=== PATIENT | female | born 2005 | race Caucasian/White ===

== ENCOUNTER 2024-02-03 19:10 | Emergency (ER) | payer SELFPAY ==
[2024-02-03 19:21] VITALS: BP 123/86; PULSE 85; RESP 16; TEMP 36.7; O2SAT 100
--- NOTE | 2024-02-03 19:22 | ED.FEMALEGU ---
HPI - Female Genitourinary General Chief complaint: Urogenital-Female Stated complaint: Uti Source: patient and RN notes reviewed Mode of arrival: ambulatory Limitations: no limitations History of Present Illness HPI Narrative: 18-year-old female presented for complaint of burning with urination over the past few days. She states she treated herself for possible yeast infection about 2 weeks ago using [id number] cream with improvement in symptoms. She currently denies vaginal itching or discharge. Denies hematuria, nausea, vomiting, abdominal pain, flank pain, constipation, diarrhea, fevers or chills. denies concern for or STD. Additionally, pt mentioned at the gym recently her heart rate read 208 bpm on her watch. Denies having any chest pain, dizziness, palpitations, nausea or syncope at that time. She was exercising. Pt did notify her pcp at that time and was advised to continue to monitor. Related Data Allergies Allergy/AdvReac Type Severity Reaction Status Date / Time No Known Allergies Allergy Verified 02/03/24 19:36 Review of Systems Review of Systems: CONSTITUTIONAL: Denies body aches, fever, chills, or sweats. CARDIOVASCULAR: Denies chest pain, palpitations, or edema. RESPIRATORY: Denies cough or dyspnea. GASTROINTESTINAL: Denies abdominal pain, nausea, vomiting, or diarrhea. GENITOURINARY: Reports dysuria, denies frequency, urgency, hematuria, flank pain SKIN: Denies rash, itching, or wounds. MUSCULOSKELETAL: Denies back pain or myalgia. PMFSH Comments At time of signature, I have reviewed and agree with nursing past medical, surgical, social and family history unless otherwise noted. Please see nursing chart for further information. There is no relevant family history pertinent to the presenting complaint Exam Narrative: GENERAL: Well-appearing ENT: Mucous membranes pink and moist. NECK: Normal AROM. Supple. CHEST: No respiratory distress. Clear to auscultation. HEART: Regular rate and rhythm. ABDOMEN: Soft, nontender, nondistended, normal active bowel sounds. No CVA tenderness SKIN: Warm, dry, no rash. NEURO: No focal deficits. Alert and oriented x3. Gait steady. PSYCH: Normal affect. Course Course Emergency Course: Patient is aware of diagnosis, understands and agrees to treatment plan. Anticipatory guidance given. Patient agrees to follow-up as directed and is aware of reasons to seek care at the emergency department. Portions of this record may have been created with voice recognition software Level of Care: Express Care Visit Vital Signs Vital signs: Reviewed MDM - Female Genitourinary MDM Narrative Medical decision making narrative: Discussed physical exam findings and urine dip. Advised supportive measures and signs/symptoms to go to the ER. Pt is appropriate for outpt treatment and f/u. Pt will f/u with pcp regarding elevated HR at the gym. Differential Diagnosis Differential diagnosis: Likely urinary tract infection, bacterial vaginosis, vaginitis, cystitis and other Lab Data Labs: Lab Results 02/03/24 Range/Units 19:27 POC Urine Color Yellow POC Urine Clarity Cloudy POC Urine pH 5.5 POC Ur Specif [place] 1.030 POC Urine Protein Negative (Negative) POC Ur Glucose (UA) Negative (Negative) POC Urine Ketones Negative (Negative) POC Urine Blood 2+ (Negative) POC Urine Nitrite Positive (Negative) POC Urine Bilirubin Negative (Negative) POC Urine Urobilinogen 0.2 POC U Leukocyte Esteras Negative (Negative) Discharge Plan Discharge Clinical Impression: Dysuria Patient Disposition: Home, Self-Care Condition: Stable Instructions: Antibiotic Form, Urinary Tract Infection in Women (ED) Additional Instructions: Take the antibiotic as prescribed The urine will be sent of for a culture to identify what type of bacteria is causing your infection. If the culture shows that the antibio
[2024-02-03 19:29] LABS: EDUAAPPEAR Cloudy; EDUABILI Negative (Negative); EDUABLOOD 2+ (Negative); EDUACOLOR1 Yellow; EDUAGLUCOSE Negative (Negative); EDUAKETONE Negative (Negative); EDUALEUKO Negative (Negative); EDUANITRATE Positive (Negative); EDUAPH 5.5; EDUAPROTEIN Negative (Negative); EDUAUROBILI 0.2
== END 2024-02-03 19:37 | disposition home or self-care (01) ==
PROVIDERS: Emergency Provider Nurse Practitioner Family
DX: R30.0 Dysuria (principal)
CPT/HCPCS: 81003; 87086; 87186; 99203; G0463

== ENCOUNTER 2024-02-09 15:01 | Emergency (ER) | payer OTHER, SELFPAY ==
--- NOTE | ~2024-02-09 | CT_ITS ---
EXAMINATION: CT abdomen pelvis wo con DATE: 02/09/2024 16:47 INDICATION: Flank pain TECHNIQUE: Computed tomography (CT) of the abdomen and pelvis was performed without intravenous contr ast. Automated exposure control and iterative reconstruction technique were employed. The dose-length product was 565.51 mGy-cm. COMPARISON: None FINDINGS: Lung bases are clear. Heart size is normal. No pericardial or pleural effusion. Liver, gallbladder, s pleen, pancreas and bilateral adrenal glands are normal. Kidneys and ureters are normal with no uroli thiasis, hydroureteronephrosis or perinephric/ureteral stranding. There are few phleboliths in the le ft hemipelvis. T-shaped IUD in expected position within the anteverted uterus. Bladder and bilateral adnexa are unremarkable. Bowels including the appendix are normal with no obstruction. No free intrap eritoneal gas or fluid. No pathologically enlarged abdominal or pelvic lymphadenopathy. Mild lumbar l evocurvature measuring 6 degrees on the device repair technician topogram. IMPRESSION: 1. No urolithiasis or acute intra-abdominal/pelvic process. 2. T-shaped IUD in expected position. Reviewed, dictated and finalized at location A.
[2024-02-09 15:04] VITALS: BP 121/88; PULSE 98; RESP 18; TEMP 36.4; O2SAT 100
[2024-02-09 15:48] LABS: BEDSIDEPREGUCG Negative (Negative)
[2024-02-09 15:53] LABS: Basophils Percent Auto 0.4 % (0.2-1.2); Eosinophils Absolute Auto 0.2 K/mm3 (0-0.3); Eosinophils Percent Auto 2.7 % (0-4.4); Hematocrit 41.7 % (37.0-47.0); Hemoglobin 13.8 g/dL (12.0-15.0); Immature Granulocyte Absolute 0.02 K/mm3 (0.00-0.031); Immature Granulocyte Percent A 0.3 % (0-0.5); Lymphocytes Absolute Auto 2.52 K/mm3 (0.9-3.2); Lymphocytes Percent Auto 37.4 % (18.3-44.2); Mean Corpuscular HGB Conc 33.1 g/dl (32-36); Mean Corpuscular Volume 84.6 fl (80-100); Mean Platelet Volume 11.1 fl (7.4-10.4); Monocytes Absolute Auto 0.7 K/mm3 (0.1-0.6); Monocytes Percent Auto 9.8 % (2.6-8.5); Neutrophils Absolute Auto 3.3 K/mm3 (1.3-6.7); Neutrophils Percent Auto 49.4 % (45.5-73.1); Platelet Count Result 223 k/mm3 (150-375); Red Blood Count 4.93 M/mm3 (4.2-5.4); Red Cell Distribution Width 12.3 % (11.5-14.5); White Blood Count 6.7 K/mm3 (4.5-10.0)
[2024-02-09 15:58] LABS: Add Urine Microscopic? YES; Appearance Urine Clear (Clear); Bacteria Urine None Seen /hpf; Bilirubin Urine Negative (Negative); Blood Urine 3+ (Negative); Color Urine Yellow (Yellow); Glucose Urine UA Negative (Negative); Ketones Urine Negative (Negative); Leukocyte Esterase Ur Negative LEU/UL (Negative); Nitrate Urine Negative (Negative); Non Pathogenic Casts 0-2; Protein Urine Negative (Negative); Specific Grav Ur 1.017 (1.001-1.035); Squamous Epithelial Cell Urine Occasional /hpf (Few); Urobilinogen Urine 0.2 mg/dL (<2.0); WBC Urine 0-5 /hpf (0-3); pH Urine 6.5 (5.0-9.0)
[2024-02-09 16:03] LABS: Alanine Aminotransferase 17 U/L (6-35); Albumin Level 4.5 g/dL (3.5-5.1); Alkaline Phosphatase 71 U/L (38-126); Anion Gap 7 mmol/L (4-12); Aspartate Amino Transferase 24 U/L (14-36); Bilirubin,Total 0.5 mg/dL (0.2-1.3); Blood Urea Nitrogen 16 mg/dL (7-17); Calcium 9.5 mg/dL (8.4-10.2); Carbon Dioxide 27 mmol/L (22-30); Chloride 104 mmol/L (98-107); Estimated CRCL calculation 102 ml/min; Estimated Glomerular Filt Rate > 60; Glucose 97 mg/dL (65-110); Lipase 63 U/L (23-300); Potassium 4.3 mmol/L (3.4-5.0); Sodium 138 mmol/L (137-145)
--- NOTE | 2024-02-09 17:09 | ED_ITS ---
HPI - Abdominal Pain General Chief Complaint: Abdominal Pain Stated Complaint: abd pain, back pain, possible displaced IUD Time Seen by Provider: 02/09/24 16:09 History of Present Illness HPI narrative: Patient is a 18-year-old female who presents ER with multiple issues. Last few weeks she developed some vaginal discharge that was treated as a fungal infection. Patient then began having spotting which was weird because she has an IUD. She then started having red flecks in her urine. She has been having some low back aching with this. She had been speaking with her OB but she is out of town so she came here for further evaluation. She is concerned her IUD could be out of place. No history kidney stones. No dysuria. No abdominal pain other than typical cramping that would accompany a period. Patient has no vaginal discharge at this time and is not concerned about STI. Related Data Allergies Allergy/AdvReac Type Severity Reaction Status Date / Time No Known Allergies Allergy Verified 02/09/24 15:07 Review of Systems Review of Systems: All systems reviewed & are unremarkable except as noted in HPI and below Constitutional: Constitutional: Reports no additional constitutional complaints Cardiovascular: Cardiovascular: Reports no additional cardiovascular complaints Respiratory: Respiratory: Reports no additional respiratory complaints Gastrointestinal: Gastrointestinal: Reports no additional gastrointestinal complaints Musculoskeletal: Musculoskeletal: Reports no additional musculoskeletal complaints PMFSH Past Medical History Medical History (Updated 02/09/24 @ 17:16 by Juni Buenrostro MD) Healthy female adult Surgical History Surgical History (Updated 02/09/24 @ 17:11 by Juni Buenrostro MD) No pertinent past surgical history Exam 2 Narrative: GENERAL: Well-appearing, well-nourished, and in no acute distress. HEAD: Normocephalic, atraumatic. ENT: Mucous membranes moist. CHEST: Clear to auscultation. No respiratory distress. HEART: Regular rate and rhythm. Normal peripheral pulses. ABDOMEN: Soft, nontender, nondistended. EXTREMITIES: Normal range of motion. No edema. SKIN: Warm, dry, no rash. NEURO: Alert and oriented x3. PSYCH: Normal mood and affect. Course Course Emergency Course: small amount of blood in urine. Labs unremarkable as was exam. CT with IUD in place and no obstructing renal calculus. Appropriate for discharge home. Vital Signs Vital signs: Vital Signs Temperature 97.6 F 02/09/24 15:04 Pulse Rate 98 02/09/24 15:04 Respiratory Rate 18 02/09/24 15:04 Blood Pressure 121/88 02/09/24 15:04 Pulse Oximetry 100 02/09/24 15:04 Oxygen Delivery Room Air 02/09/24 15:04 Temperature 97.6 F 02/09/24 15:04 Pulse Rate 98 02/09/24 15:04 Respiratory Rate 18 02/09/24 15:04 Blood Pressure 121/88 02/09/24 15:04 Pulse Oximetry 100 02/09/24 15:04 Oxygen Delivery Room Air 02/09/24 15:04 MDM - Abdominal Pain Lab Data 02/09/24 15:40 02/09/24 15:40 Labs: Lab Results 02/09/24 02/09/24 02/09/24 Range/Units 15:40 15:45 15:46 WBC 6.7 (4.5-10.0) K/mm3 RBC 4.93 (4.2-5.4) M/mm3 Hgb 13.8 (12.0-15.0) g/dL Hct 41.7 (37.0-47.0) % MCV 84.6 (80-100) fl MCH 28.0 (26-34) pg MCHC 33.1 (32-36) g/dl RDW 12.3 (11.5-14.5) % Plt Count 223 (150-375) k/mm3 MPV 11.1 H (7.4-10.4) fl Immature Gran % (Auto) 0.3 (0-0.5) % Neut % (Auto) 49.4 (45.5-73.1) % Lymph % (Auto) 37.4 (18.3-44.2) % [place] % (Auto) 9.8 H (2.6-8.5) % Eos % (Auto) 2.7 (0-4.4) % Baso % (Auto) 0.4 (0.2-1.2) % Lymph # (Auto) 2.52 (0.9-3.2) K/mm3 [place] # (Auto) 0.7 H (0.1-0.6) K/mm3 Eos # (Auto) 0.2 (0-0.3) K/mm3 Baso # (Auto) 0.0 (0.0-0.1) K/mm3 Abs Immat Gran (auto) 0.02 (0.00-0.031) K/mm3 Absolute Neuts (auto) 3.3 (1.3-6.7) K/mm3 Absolute Nucleated RBC 0.000 (0.0-0.012) K/mm3 Nucleated RBC % 0.0 (0.0-0.2) % Sodium 138 (137-145) mmol/L Potassium 4.3 (3.4-5.0) mmol/L Chloride 104 (98-107) mmol/L Carbon Dioxide 27 (22-30) mmol/L Anion Gap 7 (4-12) mmol/L BUN 16 (7-17) mg/dL Creatinine 0.80 (0.7-1.0) mg/dL Estim Creat Clear Calc 102 ml/min Estimated GFR > 60 (59 - ) Glucose 97 (65-110) mg/dL Calcium 9.5 (8.4-10.2) mg/dL Total Bilirubin 0.5 (0.2-1.3) mg/dL AST 24 (14-36) U/L ALT 17 (6-35) U/L Alkaline Phosphatase 71 (38-126) U/L Total Protein 8.0 (6.3-8.2) g/dL Albumin 4.5 (3.5-5.1) g/dL Lipase 63 (23-300) U/L Urine Color Yellow (Yellow) Urine Appearance Clear (Clear) Urine pH 6.5 (5.0-9.0) Ur Specific [place] 1.017 (1.001-1.035) Urine Protein Negative (Negative) mg/dL Urine Glucose (UA) Negative (Negative) mg/dL Urine Ketones Negative (Negative) mg/dL Ur Blood (Man) 3+ H (Negative) Urine Nitrate Negative (Negative) Urine Bilirubin Negative (Negative) Urine Urobilinogen 0.2 (<2.0) mg/dL Leukocyte Esterase Rfl Negative (Negative) JO-ANN/UL Urine RBC 11-20 H (0-2) /hpf Urine WBC 0-5 (0-3) /hpf Ur Squamous Epith Cells Occasional (Few) /hpf Urine Bacteria None seen /hpf Urine Casts 0-2 POC Urine HCG, Qual Negative (Negative) Imaging Data Radiologist's impression: ITS Impressions Abdomen/Pelvis CT 02/09/24 16:51 IMPRESSION: 1. No urolithiasis or acute intra-abdominal/pelvic process. 2. T-shaped IUD in expected position. Discharge Plan Discharge Clinical Impression: Menstrual cramp Patient Disposition: Home, Self-Care Condition: Stable Instructions: Abnormal (Dysfunctional) Uterine Bleeding (ED) Additional Instructions: Follow-up with the primary care doctor for further treatment evaluation. There is no evidence of infection or obstructing stone on her CT scan. Your IUD is in place. Prescriptions: No Action nitrofurantoin monohyd/m-cryst [Macrobid] 100 mg capsule 100 mg PO Q12H 5 Days Qty: 10 0RF Rx Instructions: must administer with a meal/food Follow-up/Referrals: UNKNOWN,DOCTOR [Primary Care Provider] - 1 Week
[2024-02-09] MEDS: KETOROLAC 30 MG/ML VIAL (*BKC) IV PUSH (17:14)
== END 2024-02-09 17:37 | disposition home or self-care (01) ==
PROVIDERS: Emergency Medicine; Emergency Provider Emergency Medicine
DX: N94.6 Dysmenorrhea, unspecified (principal); Z97.5 Presence of (intrauterine) contraceptive device
CPT/HCPCS: 36415; 74176; 80053; 81001; 81025; 83690; 85025; 96374; 99284; J1885

== ENCOUNTER 2024-05-23 18:23 | Emergency (ER) | payer OTHER, SELFPAY ==
[2024-05-23 18:32] VITALS: BP 122/82; PULSE 91; RESP 16; TEMP 36.6; O2SAT 100
--- NOTE | 2024-05-23 18:37 | ED_ITS ---
HPI - URI/Sore Throat General Chief Complaint: Upper Respiratory Infection Stated Complaint: STUFFY NOSE/SORE THROAT/EARACHE Time Seen by Provider: 05/23/24 18:35 Source: patient Mode of arrival: ambulatory Limitations: no limitations History of Present Illness HPI Narrative: Kevin is a 19-year-old female patient presenting to clinic today with complaints of runny nose, sore throat, and earache. Symptoms started 3-4 days ago. No known fevers. 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 Is concerned about strep or influenza. MD elicited complaint: cough, sore throat, rhinorrhea and nasal congestion Related Data Home Medications ?Medication ?Instructions ?Recorded ?Confirmed ?Last Taken ?Type No Home Medications 05/23/24 05/23/24 Unknown History Allergies Allergy/AdvReac Type Severity Reaction Status Date / Time No Known Allergies Allergy Verified 05/23/24 18:29 Review of Systems Review of Systems: Pertinent positives per HPI. Patient denies any fever, chills, rash, visual changes, dizziness, shortness of breath, chest pain, palpitations, nausea, vomiting, diarrhea, constipation, abdominal pain, or any urinary issues. [facility] Past Medical History Medical History Healthy female adult Surgical History Surgical History No pertinent past surgical history Comments At the time of my signature, I reviewed and agree with the nursing past medical, surgical, social, and family history. There is no relevant family history pertinent to the patient complaint. Exam Narrative: General: Well-developed, well nourished, in no apparent distress Head: Normocephalic, atraumatic Eyes: Pupils equally round and reactive to light bilaterally, EOM intact, sclera and conjunctive clear, no discharge, lids normal Ears: TMs intact and congested, ear canals clear, no drainage, grossly hearing normal. Nose: Nares patent, clear nasal discharge, no inflammation, no sinus tenderness. Mouth: Oral pharynx red without lesions or masses, good dentition, MMM. Postnasal drip Neck: Supple, trachea midline, no enlargement of anterior or posterior cervical nodes, no thyroid masses or goiter palpable. Cardio: Regular rate and rhythm, s1 and s2 normal, no murmur appreciated. Resp: Clear to auscultation bilaterally, no rhonchi, rales, wheezing or rubs Course Course Emergency Course: Portions of this record may have been created with voice recognition software. Level of Care: Express Care Visit Vital Signs Vital signs: Vital Signs Temperature 36.6 C 05/23/24 18:32 Pulse Rate 91 05/23/24 18:32 Respiratory Rate 16 05/23/24 18:32 Blood Pressure 122/82 05/23/24 18:32 Pulse Oximetry 100 05/23/24 18:32 Temperature 36.6 C 05/23/24 18:32 Pulse Rate 91 05/23/24 18:32 Respiratory Rate 16 05/23/24 18:32 Blood Pressure 122/82 05/23/24 18:32 Pulse Oximetry 100 05/23/24 18:32 Vital signs reviewed MDM - URI/Sore Throat MDM Narrative Medical decision making narrative: At the time of visit patient is resting comfortably on the exam table. Patient appears to be nontoxic. Labs: Strep and influenza testing was performed. Strep was negative we will send strep for culture. Plan: I suspect patient has URI/pharyngitis/viral syndrome. Supportive measures were discussed with the patient and they voiced understanding discharge instructions and agrees to treatment plan. Return precautions reviewed Differential Diagnosis Differential diagnosis: Likely upper respiratory infection, otitis media, sinusitis, viral infection, bronchitis, influenza, pharyngitis and other (COVID) Lab Data Labs: Lab Results 05/23/24 Range/Units 18:53 POC Influenza A Ag Negative (Negative) POC Influenza B Ag Negative (Negative) POC Grp A Strep Screen Negative (Negative) Discharge Plan Discharge Clinical Impression: Upper respiratory infection Qualifiers: URI type: unspecified URI Qualified Code(s): J06.9 - Acute upper respiratory infection, unspecified Pharyngitis Qualifiers: Pharyngitis/tonsillitis etiology: unspecified etiology Qualified Code(s): J02.9 - Acute pharyngitis, unspecified Patient Disposition: Home, Self-Care Condition: Stable Instructions: Antibiotic Form, Pharyngitis (ED), Viral Syndrome (ED), Cold Symptoms (ED) Additional Instructions: Influenza and strep test were negative in the clinic today. We will send strep for culture if this comes back positive we will contact him place you on antibiotics at that time. Increase fluids and stay well hydrated Tylenol/motrin for pain/fever Flonase and OTC antihistamines as directed Vicks vapor rub to open sinuses Sinus rinses for congestion Cepacol spray, cough drops, throat lozenges, warm tea with honey/lemon, gargle salt water to soothe throat BRAT diet for diarrhea Clear liquids x 24 hours then advance as tolerated for nausea/vomiting Go to the ED if you develop a worsening in your condition- high fever not controlled by Tylenol or Motrin, dehydration, weakness, lethargy, shortness of breath, or chest pain. Follow up with your PCP in 3-5 days if symptoms persist. Patient Language: Palestinian Prescriptions: No Action No Home Medications Follow-up/Referrals: Nanda,Kristen [Other] Stand Alone Forms: Work/School Release IP Time of Disposition: 18:55 Quality NIHSS Nursing Documentation ED NIHSS nursing documentation: reviewed/agree
[2024-05-23 18:55] LABS: EDINFLUASCREEN Negative (Negative); EDINFLUBSCREEN Negative (Negative); EDSTREPNEGPOS1 Negative (Negative)
== END 2024-05-23 18:58 | disposition home or self-care (01) ==
PROVIDERS: Emergency Provider Nurse Practitioner Family
DX: J06.9 Acute upper respiratory infection, unspecified (principal); J02.9 Acute pharyngitis, unspecified
CPT/HCPCS: 87081; 87804; 87880; 99213; G0463

== ENCOUNTER 2024-05-25 13:49 | Emergency (ER) | payer OTHER, SELFPAY ==
--- NOTE | ~2024-05-25 | XR_ITS ---
EXAMINATION: XR chest 2V DATE: 05/25/2024 14:32 INDICATION: Cough. Chest congestion. TECHNIQUE: Frontal and lateral views of the chest were obtained. COMPARISON: CT abdomen and pelvis 02/09/2024 FINDINGS: There is no pneumonia, pleural effusion, or pneumothorax. The heart size is normal. IMPRESSION: 1. No acute cardiopulmonary disease. Reviewed, dictated and finalized at location A. [facility]
[2024-05-25 14:01] VITALS: BP 117/83; PULSE 78; RESP 16; TEMP 36.4; O2SAT 100
--- NOTE | 2024-05-25 14:11 | ED_ITS ---
HPI - URI/Sore Throat General Chief Complaint: Upper Respiratory Infection Stated Complaint: Chest Congestion Time Seen by Provider: 05/25/24 14:11 Source: patient Mode of arrival: ambulatory Limitations: no limitations History of Present Illness HPI Narrative: 19-year-old female presents with complaint of nasal congestion, postnasal drainage, scratchy irritated throat, cough for 6 days. Afebrile. Taking over-t he-counter medications to treat symptoms. Reports pneumonia exposure at work. Called her primary care physician regarding continued symptoms and he recommended a chest x-ray. Patient asking for COVID and influenza test again. All systems reviewed and negative except as noted above. Related Data Allergies Allergy/AdvReac Type Severity Reaction Status Date / Time No Known Allergies Allergy Verified 05/25/24 14:04 Review of Systems Review of Systems: CONSTITUTIONAL: Denies fever, chills, or sweats. Reports fatigue. EYES: Denies visual changes, redness, or discharge. ENT: Reports rhinorrhea, congestion, sore throat. Denies otalgia. CARDIOVASCULAR: Denies chest pain, palpitations, or edema. RESPIRATORY: Reports cough. Denies dyspnea. GASTROINTESTINAL: Denies abdominal pain, nausea, vomiting, or diarrhea. GENITOURINARY: Denies dysuria or hematuria. SKIN: Denies rash or itching. MUSCULOSKELETAL: Denies back pain, joint pain, or myalgia. NEUROLOGIC: Denies headache, numbness, or weakness. PSYCHIATRIC: Denies anxiety or depression. All other systems reviewed are negative, except as documented in HPI. PMFSH Past Medical History Medical History Healthy female adult Surgical History Surgical History No pertinent past surgical history Comments At time of signature, agree with nursing past medical, surgical, social and family history. There is no relevant family history pertinent to the presenting complaint. Exam Narrative: GENERAL: This is a well-nourished, well-developed patient, ill-appearing but in no acute distress HEAD: normocephalic, atraumatic. EYES: PERRL. Sclera clear/white. Vision is grossly intact. EARS: External ears normal, auditory canals clear and without drainage, TMs normal without perforation. Hearing grossly intact. NOSE: External nose normal with clear nasal drainage, mild erythema to bilateral nares THROAT: Mucous membranes moist, mild erythema with clear postnasal drainage NECK: Neck supple, non-tender without lymphadenopathy, masses or thyromegaly. CARDIOVASCULAR: Regular rate and rhythm without murmurs, gallops, or rubs. RESPIRATORY: Clear to auscultation. Breath sounds equal bilaterally. No wheezes, rales, or rhonchi. SKIN: warm, Dry, intact with no suspicious lesions or rash, good texture and turgor. NEURO: awake, alert, and oriented to person, place and time. There were no obvious focal neurologic abnormalities. EXTREMITIES: No joint tenderness, effusion, or edema noted. Course Course Level of Care: Express Care Visit Vital Signs Vital signs: Vital Signs Temperature 36.4 C 05/25/24 14:01 Pulse Rate 78 05/25/24 14:01 Respiratory Rate 16 05/25/24 14:01 Blood Pressure 117/83 05/25/24 14:01 Pulse Oximetry 100 05/25/24 14:01 Temperature 36.4 C 05/25/24 14:01 Pulse Rate 78 05/25/24 14:01 Respiratory Rate 16 05/25/24 14:01 Blood Pressure 117/83 05/25/24 14:01 Pulse Oximetry 100 05/25/24 14:01 Reviewed MDM - URI/Sore Throat MDM Narrative Medical decision making narrative: Negative COVID, influenza test. Chest x-ray negative for pneumonia. Recommend continuing [id number] medications to treat viral symptoms. Patient is alert, nontoxic. Patient is aware of diagnosis, understands and agrees to treatment plan. Anticipatory guidance given. Patient agrees to follow-up as directed and is aware of reasons to seek care at the emergency department. Portions of this record may have been created with voice recognition software Differential Diagnosis Differential diagnosis: Likely upper respiratory infection, sinusitis, viral infection, influenza and other (COVID-19, pneumonia) Lab Data Labs: Lab Results 05/25/24 Range/Units 14:28 POC Influenza A Ag Negative (Negative) POC Influenza B Ag Negative (Negative) POC SARS CoV-2 Ag Negative (Negative) Imaging Data My impression: Agree with radiologist Radiologist's impression: EXAMINATION: XR chest 2V DATE: 05/25/2024 14:32 INDICATION: Cough. Chest congestion. TECHNIQUE: Frontal and lateral views of the chest were obtained. COMPARISON: CT abdomen and pelvis 02/09/2024 FINDINGS: There is no pneumonia, pleural effusion, or pneumothorax. The heart size is normal. IMPRESSION: 1. No acute cardiopulmonary disease. Discharge Plan Discharge Clinical Impression: Viral upper respiratory tract infection with cough Patient Disposition: Home, Self-Care Condition: Stable Instructions: Upper Respiratory Infection (ED) Additional Instructions: Your COVID and influenza test were negative today. Your chest x-ray was normal. Your symptoms are viral and may last 10-14 days. Continue taking [id number] medication to treat her symptoms such as DayQuil NyQuil cold and flu. Drink at least 64 oz of water a day. Place cool mist humidifier in bedroom where you sleep. Follow-up with your primary care physician if symptoms are not improving. Patient Language: Martiniquais Prescriptions: New methylprednisolone [Medrol (Eh)] 4 mg tablets,dose pack See Rx Instructions PO .COMPLEX Qty: 21 0RF Rx Instructions: orally per package directions Follow-up/Referrals: UNKNOWN,DOCTOR [Primary Care Provider] - Time of Disposition: 14:44
[2024-05-25 14:30] LABS: EDCOVIDSCREEN Negative (Negative); EDINFLUASCREEN Negative (Negative); EDINFLUBSCREEN Negative (Negative)
== END 2024-05-25 14:53 | disposition home or self-care (01) ==
PROVIDERS: Emergency Provider Nurse Practitioner Family
DX: J06.9 Acute upper respiratory infection, unspecified (principal); R05.9 Cough, unspecified; Z20.822 Contact with and (suspected) exposure to COVID-19
CPT/HCPCS: 71046; 87426; 87804; 99213; G0463

== ENCOUNTER 2025-03-13 21:02 | Emergency (ER) | payer OTHER, SELFPAY ==
--- NOTE | ~2025-03-13 | XR_ITS ---
EXAMINATION: XR chest 2V DATE: 03/13/2025 21:37 INDICATION: Syncope. TECHNIQUE: Frontal and lateral views of the chest were obtained. COMPARISON: Chest x-ray dated 05/25/2024 FINDINGS: Heart size is normal. Lungs are clear of acute processes. IMPRESSION: 1. No acute findings. Reviewed, dictated and finalized at location T. TRONIC PUBLISHING SPECIALIST IMPRESSION: 1. No acute findings.
--- NOTE | ~2025-03-13 | CT_ITS ---
CT HEAD NON-CONTRAST Clinical History: dizziness, brain fog, headache Comparison: None Technique: Unenhanced axial images skull base to vertex Coronal, sagittal reformats CT images acquired with automatic exposure control for dose reduction DLP: 605 mGy-cm Findings: Sulci, ventricles: Unremarkable. No intracerebral hemorrhage. No evidence acute territorial infarct. No mass effect, midline shift. Bony calvarium intact. Visualized paranasal sinuses: Clear. Mastoid air cells: Clear. IMPRESSION: 1. No acute intracranial findings. Reviewed, dictated and finalized at location R. WINDER
[2025-03-13 21:05] VITALS: BP 144/90; PULSE 105; RESP 15; TEMP 36.6; O2SAT 100
--- NOTE | 2025-03-13 21:09 | ECG_ITS ---
Test Date: 2025-03-13 21:17:48 Measurements Intervals [place] Rate: 115 P: 24 MD: 149 QRS: 23 QRSD: 88 T: 13 QT: 320 QTc: 443 Interpretive Statements SINUS TACHYCARDIA OTHERWISE NORMAL ELECTROCARDIOGRAM No previous ECG available for comparison Electronically Signed On 03-14-2025 07:33:40 [employer]GER [employer] by Mert Campbell M.D.
[2025-03-13 21:53] LABS: Hematocrit 42.7 % (37.0-47.0); Hemoglobin 14.3 g/dL (12.0-15.0); Immature Granulocyte Percent A 0.2 % (0-0.5); Lymphocytes Absolute Auto 3.03 K/mm3 (0.9-3.2); Mean Corpuscular HGB Conc 33.5 g/dl (32-36); Mean Corpuscular Hemoglobin 27.9 pg (26-34); Mean Corpuscular Volume 83.2 fl (80-100); Nucleated Red Blood Cells Absolute Auto 0.000 K/mm3 (0.0-0.012); Nucleated Red Blood Cells Perc 0.0 % (0.0-0.2); Platelet Count Result 236 k/mm3 (150-375); Red Blood Count 5.13 M/mm3 (4.2-5.4); White Blood Count 8.6 K/mm3 (4.5-10.0)
[2025-03-13 21:54] LABS: BEDSIDEPREGUCG Negative (Negative)
[2025-03-13 22:14] VITALS: BP 124/86; BP 126/83; PULSE 85; PULSE 95
[2025-03-13 22:15] VITALS: BP 137/74; PULSE 95
[2025-03-13 22:15] LABS: Alanine Aminotransferase 34 U/L (6-35); Albumin Level 4.8 g/dL (3.5-5.1); Alkaline Phosphatase 70 U/L (38-126); Anion Gap 9 mmol/L (4-12); Aspartate Amino Transferase 36 U/L (14-36); Bilirubin,Total 0.4 mg/dL (0.2-1.3); Blood Urea Nitrogen 12 mg/dL (7-17); Calcium 9.8 mg/dL (8.4-10.2); Carbon Dioxide 28 mmol/L (22-30); Chloride 103 mmol/L (98-107); Estimated CRCL calculation 111 ml/min; Estimated Glomerular Filt Rate > 60; Glucose 103 mg/dL (65-110); Potassium 3.6 mmol/L (3.4-5.0); Sodium 140 mmol/L (137-145); Total Protein 8.0 g/dL (6.3-8.2)
[2025-03-13 22:38] VITALS: BP 110/75; PULSE 86; RESP 16; O2SAT 97
--- NOTE | 2025-03-13 23:16 | ED_ITS ---
HPI - Dizziness General Chief Complaint: Syncope Stated Complaint: brain fog, near syncope Time Seen by Provider: 03/13/25 23:01 History of Present Illness HPI Narrative: Patient is a 19-year-old female who presents to the ER with brain fog, dizziness, headache, heart palpitations, decreased p.o. intake, sore throat, and fatigue. She reports this evening she was going to get a glucometer when she had a presyncopal episode. Patient reports her muscles tensed up. She reports her mood mother has a history of abnormal thyroid levels. Patient denies any medical history relevant to this ER visit. She denies any chest pain, shortness of breath, acute back pain, or abdominal pain. Related Data Allergies Allergy/AdvReac Type Severity Reaction Status Date / Time No Known Allergies Allergy Verified 03/13/25 21:03 Review of Systems 2 Review of Systems: All systems reviewed & are unremarkable except as noted in HPI and below PMFSH Past Medical History Medical History Healthy female adult Surgical History Surgical History No pertinent past surgical history Exam 2 Narrative: GENERAL: Well appearing, well-nourished, non-toxic, in no acute distress. HEAD: Normocephalic, atraumatic. NECK: Supple. No adenopathy, no masses. RESPIRATORY: Airway patent, respirations nonlabored. Clear to auscultation bilaterally, no rales, rhonchi, wheezing. CARDIOVASCULAR: Regular rate and rhythm without murmurs, rubs, or gallops. Peripheral pulses 2+ and equal bilaterally. ABDOMINAL: Soft, nontender, nondistended, no hepatosplenomegaly. Normoactive BS. MUSCULOSKELETAL: Moves all extremities. Strength/ROM intact without gross deformities. SKIN: Warm, dry, normal color. No rashes. NEURO: A&O X3. Speech clear. Cranial nerves II-XII intact. No ataxic movements. PSYCHIATRIC: Appropriate mood and affect. Normal interaction. Course Vital Signs Vital signs: Vital Signs Temperature 36.6 C 03/13/25 21:05 Pulse Rate 105 H 03/13/25 21:05 Respiratory Rate 15 03/13/25 21:05 Blood Pressure 144/90 H 03/13/25 21:05 Pulse Oximetry 100 03/13/25 21:05 Oxygen Delivery Room Air 03/13/25 21:05 Temperature 36.6 C 03/13/25 21:05 Pulse Rate 82 03/14/25 01:52 Respiratory Rate 17 03/14/25 01:52 Blood Pressure 113/71 03/14/25 01:52 Pulse Oximetry 99 03/14/25 01:52 Oxygen Delivery Room Air 03/13/25 21:05 MDM - Dizziness MDM Narrative Medical decision making narrative: Patient is a 19-year-old female who presents to the ER with brain fog, dizziness, headache, heart palpitations, decreased p.o. intake, sore throat, and fatigue. She reports this evening she was going to get a glucometer when she had a presyncopal episode. Patient reports her muscles tensed up. She reports her mood mother has a history of abnormal thyroid levels. Patient denies any medical history relevant to this ER visit. She denies any chest pain, shortness of breath, acute back pain, or abdominal pain. Labs Ordered: CBC, CMP, TSH, mono test, magnesium Imaging Ordered: Chest x-ray, CT brain Medications Ordered: None necessary Patient has chosen to refuse further care. She would like to leave before her brain CT scan results are back. Risks of an incomplete evaluation and treatment were discussed with the patient, including potential for or permanent disability. Patient seems to understand these risks, but still desires to refuse further care. Patient recommended to follow up with PCP in the next possible interval. Specifically, patient was told they can return to the ED at any time to resume care. Differential Diagnosis Differential diagnosis: Likely benign paroxysmal positional vertigo, orthostatic hypotension and other (Dehydration, urinary tract infection) Lab Data Attestation: I reviewed the patient's lab results. 03/13/25 21:30 03/13/25 21:30 Labs: Lab Results 03/13/25 03/13/25 03/13/25 Range/Units 21:09 21:22 21:29 WBC (4.5-10.0) K/mm3 RBC (4.2-5.4) M/mm3 Hgb (12.0-15.0) g/dL Hct (37.0-47.0) % MCV (80-100) fl MCH (26-34) pg MCHC (32-36) g/dl RDW (11.5-14.5) % Plt Count (150-375) k/mm3 MPV (7.4-10.4) fl Immature Gran % (Auto) (0-0.5) % Neut % (Auto) (45.5-73.1) % Lymph % (Auto) (18.3-44.2) % [place] % (Auto) (2.6-8.5) % Eos % (Auto) (0-4.4) % Baso % (Auto) (0.2-1.2) % Lymph # (Auto) (0.9-3.2) K/mm3 [place] # (Auto) (0.1-0.6) K/mm3 Eos # (Auto) (0-0.3) K/mm3 Baso # (Auto) (0.0-0.1) K/mm3 Abs Immat Gran (auto) (0.00-0.031) K/mm3 Absolute Neuts (auto) (1.3-6.7) K/mm3 Absolute Nucleated RBC (0.0-0.012) K/mm3 Nucleated RBC % (0.0-0.2) % Sodium (137-145) mmol/L Potassium (3.4-5.0) mmol/L Chloride (98-107) mmol/L Carbon Dioxide (22-30) mmol/L Anion Gap (4-12) mmol/L BUN (7-17) mg/dL Creatinine (0.7-1.0) mg/dL Estim Creat Clear Calc ml/min Estimated GFR (59 - ) Glucose (65-110) mg/dL Calcium (8.4-10.2) mg/dL Magnesium 2.0 (1.6-2.3) mg/dL Total Bilirubin (0.2-1.3) mg/dL AST (14-36) U/L ALT (6-35) U/L Alkaline Phosphatase (38-126) U/L Total Protein (6.3-8.2) g/dL Albumin (3.5-5.1) g/dL TSH (Reflex) 2.670 (0.465-4.68) uIU/mL Urine Color (Yellow) Urine Appearance (Clear) Urine pH (5.0-9.0) Ur Specific [place] (1.001-1.035) Urine Protein (Negative) mg/dL Urine Glucose (UA) (Negative) mg/dL Urine Ketones (Negative) mg/dL Ur Blood (Man) (Negative) Urine Nitrate (Negative) Urine Bilirubin (Negative) Urine Urobilinogen (<2.0) mg/dL Leukocyte Esterase Rfl (Negative) JO-ANN/UL Urine RBC (0-2) /hpf Urine WBC (0-3) /hpf Ur Squamous Epith Cells (Few) /hpf Urine Bacteria /hpf Urine Casts POC Urine HCG, Qual Negative (Negative) Monoscreen Negative (Negative) 03/13/25 03/14/25 Range/Units 21:30 01:48 WBC 8.6 (4.5-10.0) K/mm3 RBC 5.13 (4.2-5.4) M/mm3 Hgb 14.3 (12.0-15.0) g/dL Hct 42.7 (37.0-47.0) % MCV 83.2 (80-100) fl MCH 27.9 (26-34) pg MCHC 33.5 (32-36) g/dl RDW 12.1 (11.5-14.5) % Plt Count 236 (150-375) k/mm3 MPV 10.6 H (7.4-10.4) fl Immature Gran % (Auto) 0.2 (0-0.5) % Neut % (Auto) 50.8 (45.5-73.1) % Lymph % (Auto) 35.4 (18.3-44.2) % [place] % (Auto) 10.3 H (2.6-8.5) % Eos % (Auto) 2.8 (0-4.4) % Baso % (Auto) 0.5 (0.2-1.2) % Lymph # (Auto) 3.03 (0.9-3.2) K/mm3 [place] # (Auto) 0.9 H (0.1-0.6) K/mm3 Eos # (Auto) 0.2 (0-0.3) K/mm3 Baso # (Auto) 0.0 (0.0-0.1) K/mm3 Abs Immat Gran (auto) 0.02 (0.00-0.031) K/mm3 Absolute Neuts (auto) 4.3 (1.3-6.7) K/mm3 Absolute Nucleated RBC 0.000 (0.0-0.012) K/mm3 Nucleated RBC % 0.0 (0.0-0.2) % Sodium 140 (137-145) mmol/L Potassium 3.6 (3.4-5.0) mmol/L Chloride 103 (98-107) mmol/L Carbon Dioxide 28 (22-30) mmol/L Anion Gap 9 (4-12) mmol/L BUN 12 (7-17) mg/dL Creatinine 0.74 (0.7-1.0) mg/dL Estim Creat Clear Calc 111 ml/min Estimated GFR > 60 (59 - ) Glucose 103 (65-110) mg/dL Calcium 9.8 (8.4-10.2) mg/dL Magnesium (1.6-2.3) mg/dL Total Bilirubin 0.4 (0.2-1.3) mg/dL AST 36 (14-36) U/L ALT 34 (6-35) U/L Alkaline Phosphatase 70 (38-126) U/L Total Protein 8.0 (6.3-8.2) g/dL Albumin 4.8 (3.5-5.1) g/dL TSH (Reflex) (0.465-4.68) uIU/mL Urine Color Yellow (Yellow) Urine Appearance Clear (Clear) Urine pH 6.5 (5.0-9.0) Ur Specific [place] 1.010 (1.001-1.035) Urine Protein Negative (Negative) mg/dL Urine Glucose (UA) Negative (Negative) mg/dL Urine Ketones Negative (Negative) mg/dL Ur Blood (Man) Negative (Negative) Urine Nitrate Negative (Negative) Urine Bilirubin Negative (Negative) Urine Urobilinogen 0.2 (<2.0) mg/dL Leukocyte Esterase Rfl Trace H (Negative) JO-ANN/UL Urine RBC 0-2 (0-2) /hpf Urine WBC 0-5 (0-3) /hpf Ur Squamous Epith Cells Occasional (Few) /hpf Urine Bacteria Rare /hpf Urine Casts 0-2 POC Urine HCG, Qual (Negative) Monoscreen (Negative) Discharge Plan Discharge Clinical Impression: Headache, Pre-syncope, Dizziness Patient Disposition: Left Against Medical Advice Condition: Stable Patient Language: Stateless Prescriptions: No Action methylprednisolone [Medrol (Eh)] 4 mg tablets,dose pack See Rx Instructions PO .COMPLEX Qty: 21 0RF Rx Instructions: orally per package directions Follow-up/Referrals: UNKNOWN,DOCTOR [Non-Staff]
[2025-03-13 23:28] LABS: Magnesium 2.0 mg/dL (1.6-2.3)
[2025-03-13 23:30] LABS: Negative Monotest Control Negative (Negative); Positive Monotest Control Positive (Positive)
--- OUTSIDE RECORDS SUMMARY | 2025-03-13 23:52 | XMS_ITS | Data Portability ---
Author Organization [facility], [address] [facility] ([place]) Address [address] [place] [address] Care Team Providers Care Automotive Service Professional Name Role Phone LINNEA, KRISTEN Primary Care Provider Assessment Encounter Date Assessment Date Assessment LastModified by Organization Details LastModified Time 05/29/2024 05/29/2024 Patient is here with complaint of 11 days of sinus congestion discomfort in her face and back teeth. She says it is bilateral. Her mucus is green. No cough or fever. Her ears have bothered her a little bit. No sore throat. She went to urgent care in [place] and was told to use Sudafed and Flonase and they also gave her Medrol Dosepak which she is completing. She has not improved and had called in requesting an antibiotic. She also mentions that she had a chest x-ray when she was at urgent care. Patient has no fever, chills, sore throat or earache. No abdominal pain, nausea or vomiting. No bowel or bladder changes. No chest pain or shortness of breath. Patient is alert and oriented and in no distress. Pupils are equal round and reactive to light. Lids and conjunctiva unremarkable. Oropharynx is clear without erythema or exudate. Neck is supple without lymphadenopathy or mass. Respiratory effort is normal. Lungs are clear . No crackles or wheezes. Cardiac exam is regular rate and rhythm. No murmur. Abdomen is soft, nontender. No distension, rebound or guarding. Lower extremities have no edema. Gait and stance are normal. Ears are without erythema or bulging and there is no discomfort on exam. No discomfort with palpation of the maxillary or frontal facial areas. No redness or swelling. 11 days of sinus congestion and pressure. No cough no fever. She sounds nasally congested but lungs are clear Recommend continued use of Flonase, decongestant and mucolytic. She was also advised to drink plenty of water to help thin the mucus. She is allergic to penicillin therefore will start doxycycline. Expected improvement discussed. Call for problems or concerns or failure to improve. Her questions were answered and she is comfortable with the plan. Not available 05/29/2024 12:46:18 08/29/2024 08/29/2024 Patient seen via telehealth to discuss anxiety. She has started clinicals at nursing school. She says she feels anxious pretty much all the time. It is worse before she goes to bed at night. She has had difficulty sleeping and staying asleep. She is talking to a therapist. In the past she took Lexapro but felt flat while taking it. She is interested in trying a different type of medicine. She reports that sometimes she feels lightheaded or shaky. Sometimes she feels like her heart is racing. She has an IUD. No fevers chills sore throat or earache No chest pain or trouble breathing No nausea vomiting diarrhea constipation Patient seen via telehealth Anxiety Check labs Begin fluoxetine. Will begin low-dose and increase as appropriate. Continue with therapy Continue healthy diet, healthy lifestyle, good nutrition and good sleep habits Recheck in 6 weeks or sooner if needed. Questions answered. [email or web address] Not available 08/29/2024 15:53:23 11/08/2024 11/08/2024 Patient seen via telehealth. She is using fluoxetine 20 mg daily. She says anxiety is much better. Unfortunately she has noted excessive sweating and decreased libido. Patient seen via telehealth Anxiety Anxiety is definitely improved on fluoxetine 20 mg Unfortunately she is having excessive sweating and also decreased libido Recommend decrease fluoxetine to 10 mg daily and monitor. If she continues to have significant side effects we will change medication. In the past she did well on Lexapro and she believes the dose was 10 mg daily however she felt flat with limited emotion while taking it. We may try Lexapro at a lower dose or try an entirely different medication. She will let us know how she is doing in about 4 to 6 weeks. Call sooner if needed. Questions answered. Not available 11/08/2024 12:38:03 Plan of Treatment Reminders Order Date Submit Date Provider Last Modified By Organization Details Last Modified Time Details Appointments None recorded . Lab TSH, ultra-se nsitive, serum 2024 025 eszerletich [facility], [address] [facility], [facility], [place], [address], 09:10:48 CBC w/ auto diff 2024 025 PAULY [facility], [address] [facility], [facility], [place], [address], 5 11:22:05 vitamin B12 + folate, serum or blood 2024 025 PAULY [facility], [address] [place] [address], [facility], [place], [address], 5 11:22:05 CMP, serum or plasma 2024 025 PAULY [facility], [address] [place] [address], [facility], [place], [address], 5 11:22:05 general health panel [address] [facility] Only - [facility], [address] [place] [address], [id number], 5 15:57:38 testoste joy, free + total, serum [address] [facility], [address] [place] [address], [address], 5 13:38:22 dhea-sul fate, serum [address] [facility], [address] [place] [address], [address], 5 08:10:16 Pap test, slide(s) , cervical 2024 025 [facility], [address] [place] [address], [address], 5 09:33:18 wet mount, vaginal 2023 [facility] Only - [facility], [address] [place] [address], [address], 12:58:32 urinalys is, complete 2023 [facility], [address] [place] [address], [address], 15:40:36 culture + sensitiv ity, urine 2023 [facility], [address] [place] [address], [address], 15:36:30 CT + NG DNA, PCR, unspecif ied specimen 2023 [facility], [address] [place] [address], [address], 08:18:01 Referral None recorded . Procedures None recorded . Surgeries None recorded . Imaging None recorded . Medication Orders fluoxeti ne 10 mg capsule [facility]24 [id number], [address], [place], [id number], 12:38:55 fluoxeti ne 20 mg tablet 2024 [facility] #[id number], [address], [place], [id number], 5 10:04:26 spironol actone 50 mg tablet 2024 025 [id number], [address] [place] [address], [id number], 14:21:07 doxycycl ine hyclate 100 mg capsule 2024 025 merly [facility] #[id number], [address] [place], [place], [id number], 16:23:34 metronid azole 500 mg tablet 2023 025 PAULY [facility] #[id number], [address], [place], [id number], 12:40:19 Patient TargetsNo targets recorded. Patient InstructionsNo instructions recorded. Reason for Referral None Reported. Results Created Date Observation Date Name Description Value Unit Range Abnormal Flag Note LastModifiedBy Organization Detail LastModifiedTime 02/11/2002/11/2024 wet mount parul wet prep Not Available [facility] [address] [place] [address], [address], 02/11/2024 12:50:11 02/11/2002/11/2024 wet mount parul yeast NONE SEEN none seen Not Available [facility] [address] [place] [address], [address], 02/11/2024 12:50:11 02/11/2002/11/2024 wet mount parul WBC MODERA TE none seen abnormal Not Available [facility] [address] [place] [address], [address], 02/11/2024 12:50:11 02/11/2002/11/2024 wet mount vagin augusta clue cells POSITI VE negati ve abnormal Clue Cell Inter preta tion: Posit guillermina Resul t = >20% Clue Cells Seen Negat guillermina Resul t = <20% Clue Cells Seen Not Available [facility] [address] [place] [address], [address], 02/11/2024 12:50:11 02/11/2002/11/2024 wet mount , parul al trichomonas NONE SEEN none seen Not Available [facility] [address] [place] [address], [address], 02/11/2024 12:50:11 02/11/20 24 02/11/2024 wet mount , parul al source VAG Not Available [facility] [address] [place] [address], [address], 02/11/2024 12:50:11 02/11/2002/11/2024 urina lysis , compl ete urinalysis, complete LOW LEVEL S OF HEMOG LOBIN IN ABSEN CE OF HEMAT URIA MAY NOT BE CLINI RENEE SIGNI FICAN T. Not Available [facility] [address] [place] [address], [address], 02/11/2024 15:40:36 02/11/2002/11/2024 urina lysis , compl ete color YELLOW Not Available [facility] [address] [place] [address], [address], 02/11/2024 15:40:36 02/11/2002/11/2024 urina lysis , compl ete clarity CLEAR Not Available [facility] [address] [place] [address], [address], 02/11/2024 15:40:36 02/11/2002/11/2024 urina lysis , compl ete pH 7.0 5.0-7. 5 Not Available [facility] [address] [place] [address], 64255, 02/11/2024 15:40:36 02/11/20 24 02/11/2024 urina lysis , compl ete specific gravity 1.016 1.000- 1.030 Not Available [facility] [address] [place] [address], [address], 02/11/2024 15:40:36 02/11/2002/11/2024 urina lysis , compl ete blood 2+ negati ve abnormal Not Available [facility] [address] [place] [address], [address], 02/11/2024 15:40:36 02/11/20 24 02/11/2024 urina lysis , compl ete bilirubin NEGATI VE negati ve Not Available [facility] [address] [place] [address], 845[address], 02/11/2024 15:40:36 02/11/2002/11/2024 urina lysis , compl ete urobilinogen 0.2 0.2-1. 0 Not Available [facility] [address] [place] [address], 99565, 02/11/2024 15:40:36 02/11/2002/11/2024 urina lysis , compl ete ketone NEGATI VE negati ve Not Available [facility] [address] [place] [address], 16278, 02/11/2024 15:40:36 02/11/20 24 02/11/2024 urina lysis , compl ete glucose NEGATI VE negati ve Not Available [facility] [address] [place] [address], [address], 02/11/2024 15:40:36 02/11/2002/11/2024 urina lysis , compl ete protein NEGATI VE negati ve Not Available [facility] [address] [place] [address], 25[address], 02/11/2024 15:40:36 02/11/2002/11/2024 urina lysis , compl ete nitrite NEGATI VE negati ve Not Available [facility] [address] [place] [address], 607[address], 02/11/2024 15:40:36 02/11/20 24 02/11/2024 urina lysis , compl ete leukocytes TRACE negati ve abnormal Not Available [facility] [address] [place] [address], 49[address], 02/11/2024 15:40:36 02/11/20 24 02/11/2024 urina lysis , compl ete review * Micro scopi c resul ts revie wed by Techn ologi st. Not Available [facility] - [facility] [address] [place] [address], 89[address], 02/11/2024 15:40:36 02/11/20 24 02/11/2024 urina lysis , compl ete RBC 0-2 0-2/hp f Not Available [facility] [address] [place] [address], 13[address], 02/11/2024 15:40:36 02/11/20 24 02/11/2024 urina lysis , compl ete WBC 0-5 0-5/hp f Not Available [facility] [address] [place] [address], [address]25[address], 02/11/2024 15:40:36 02/11/20 24 02/11/2024 urina lysis , compl ete squamous epithelial 6-10 0-10/h pf Not Available [facility] [address] [place] [address], 87974, 02/11/2024 15:40:36 02/11/20 24 02/11/2024 urina lysis , compl ete bacteria 1+ none abnormal Not Available [facility] [address] [place] [address], 60702, 02/11/2024 15:40:36 02/11/20 24 02/11/2024 urina lysis , compl ete hyaline cast 0-2 0-2/lp f Not Available [facility] [address] [place] [address], 109[address], 02/11/2024 15:40:36 02/11/20 24 02/12/2024 CT + NG DNA, PCR, unspe cifie d speci men GC/CT/TV DNA probe Not Available [facility] [address] [place] [address], 88[address], 02/12/2024 08:18:01 02/11/2002/12/2024 CT + NG DNA, PCR, unspe cifie d speci men GC-DNA probe NEGATI VE negati ve Not Available [facility] [address] [place] [address], [address]89[address], 02/12/2024 08:18:01 02/11/2002/12/2024 CT + NG DNA, PCR, unspe cifie d speci men chlamydia-DN A probe NEGATI VE negati ve This is a PCR assay that detec ts DNA from Chlam ydia trach omati s, Neiss eria gonor rhoea e, and Trich omona s vagin rola. A posit guillermina resul t does not neces saril y indic ate the prese nce of viabl e organ isms and there fore can not be used to asses s thera peuti c succe ss. This assay is only appro alec for femal e vagin al and male and femal e urine speci mens. This assay shoul d not be used for evalu ation of suspe cted sexua l abuse or for medic o-leg al indic ation s. Not Available [facility] [address] [place] [address], [address], 02/12/2024 08:18:01 02/11/2002/12/2024 CT + NG DNA, PCR, unspe cifie d speci men trichomonas NEGATI VE negati ve Not Available [facility] [address] [place] [address], 84813, 02/12/2024 08:18:01 02/11/2002/13/2024 cultu re + sensi tivit y, urine urine culture and sens. ALMA ROSA L URINE After overn ight incub ation <5,00 0 CFU/m L Mixed uroge nital sapphire isola jonathon. After two night s incub ation 15,00 0 CFU/m L Mixed uroge nital sapphire , 3 or more colon y types indic ative of conta minat ion. Not Available [facility] [address] [place] [address], 62[address], 02/13/2024 10:06:09 02/11/20 24 02/12/2024 cultu re + sensi tivit y, urine urine culture and sens. PREL IM URINE After overn ight incub ation <5,00 0 CFU/m L Mixed uroge nital sapphire isola jonathon. Not Available [facility] [address] [place] [address], 75194, 02/12/2024 15:36:30 05/29/19 25 05/29/2024 gener al healt h panel ghp Not Available [facility] [address] [place] [address], 19136, 05/29/2024 17:59:52 05/29/19 25 05/29/2024 gener al healt h panel TSH3 1.513 uIU/m L .340-5 .600 Not Available [facility] [address] [place] [address], 96847, 05/29/2024 17:59:52 05/29/19 25 05/29/2024 gener al healt h panel WBC 8.0 K/uL 3.8-11 .2 Not Available [facility] [address] [place] [address], 66963, 05/29/2024 17:59:52 05/29/19 25 05/29/2024 gener al healt h panel RBC 4.75 M/uL 3.92-5 .10 Not Available [facility] [address] [place] [address], 66226, 05/29/2024 17:59:52 05/29/19 25 05/29/2024 gener al healt h panel HGB 13.2 g/dL 11.8-1 5.3 Not Available [facility] [address] [place] [address], 43560, 05/29/2024 17:59:52 05/29/19 25 05/29/2024 gener al healt h panel HCT 39.2 % 36.5-4 4.8 Not Available [facility] [address] [place] [address], 48352, 05/29/2024 17:59:52 05/29/19 25 05/29/2024 gener al healt h panel MCV 82.5 fL 80.0-9 9.0 Not Available [facility] [address] [place] [address], 37620, 05/29/2024 17:59:52 05/29/19 25 05/29/2024 gener al healt h panel MCH 27.8 pg 25.5-3 3.6 Not Available [facility] [address] [place] [address], 01545, 05/29/2024 17:59:52 05/29/19 25 05/29/2024 gener al healt h panel MCHC 33.7 g/dL 32.0-3 6.0 Not Available [facility] [address] [place] [address], 95353, 05/29/2024 17:59:52 05/29/19 25 05/29/2024 gener al healt h panel RDW-SD 37.6 fL 35.1 - 46.3 Not Available [facility] [address] [place] [address], 68489, 05/29/2024 17:59:52 05/29/19 25 05/29/2024 gener al healt h panel plt 213 K/uL 130-40 0 Not Available [facility] [address] [place] [address], 15376, 05/29/2024 17:59:52 05/29/19 25 05/29/2024 gener al healt h panel MPV 11.7 fL 9.3-12 .8 Not Available [facility] [address] [place] [address], 40419, 05/29/2024 17:59:52 05/29/19 25 05/29/2024 gener al healt h panel carol% 72.5 % not estab Not Available [facility] [address] [place] [address], 51892, 05/29/2024 17:59:52 05/29/19 25 05/29/2024 gener al healt h panel lym% 19.5 % not estab Not Available [facility] [address] [place] [address], 45101, 05/29/2024 17:59:52 05/29/19 25 05/29/2024 gener al healt h panel mono% 7.3 % not estab Not Available [facility] [address] [place] [address], 73998, 05/29/2024 17:59:52 05/29/19 25 05/29/2024 gener al healt h panel eos% 0.1 % not estab Not Available [facility] [address] [place] [address], 38154, 05/29/2024 17:59:52 05/29/19 25 05/29/2024 gener al healt h panel baso% 0.3 % not estab Not Available [facility] [address] [place] [address], 04146, 05/29/2024 17:59:52 05/29/19 25 05/29/2024 gener al healt h panel abs carol 5.8 K/uL 1.8-7. 5 Not Available [facility] [address] [place] [address], 70916, 05/29/2024 17:59:52 05/29/19 25 05/29/2024 gener al healt h panel abs lym 1.6 K/uL 1.1-3. 3 Not Available [facility] [address] [place] [address], 78379, 05/29/2024 17:59:52 05/29/19 25 05/29/2024 gener al healt h panel abs mono 0.6 K/uL 0.1-1. 0 Not Available [facility] [address] [place] [address], 99313, 05/29/2024 17:59:52 05/29/19 25 05/29/2024 gener al healt h panel abs eos 0.0 K/uL 0.0-0. 7 Not Available [facility] [address] [place] [address], 55814, 05/29/2024 17:59:52 05/29/19 25 05/29/2024 gener al healt h panel abs baso 0.0 K/uL 0.0-0. 2 Not Available [facility] [address] [place] [address], 15774, 05/29/2024 17:59:52 05/29/19 25 05/29/2024 gener al healt h panel imm. gran % 0.3 % 0-5 Not Available [facility] [address] [place] [address], 30473, 05/29/2024 17:59:52 05/29/19 25 05/29/2024 gener al healt h panel NRBC % 0.0 % 0.0-0. 2 Not Available [facility] [address] [place] [address], 98623, 05/29/2024 17:59:52 05/29/19 25 05/29/2024 gener al healt h panel sodium 142 mmol/ L 136-14 6 Not Available [facility] [address] [place] [address], 62719, 05/29/2024 17:59:52 05/29/19 25 05/29/2024 gener al healt h panel potassium 3.5 mmol/ L 3.5-5. 1 Not Available [facility] [address] [place] [address], 68018, 05/29/2024 17:59:52 05/29/19 25 05/29/2024 gener al healt h panel chloride 105 mmol/ L 98-110 Not Available [facility] [address] [place] [address], 17864, 05/29/2024 17:59:52 05/29/19 25 05/29/2024 gener al healt h panel CO2 27 mEq/L 20-32 Not Available [facility] [address] [place] [address], 39407, 05/29/2024 17:59:52 05/29/19 25 05/29/2024 gener al healt h panel anion gap 14 mmol/ L 10-22 Not Available [facility] [address] [place] [address], 28316, 05/29/2024 17:59:52 05/29/19 25 05/29/2024 gener al healt h panel glucose 96 mg/dL 70-100 Not Available [facility] [address] [place] [address], 22439, 05/29/2024 17:59:52 05/29/19 25 05/29/2024 gener al healt h panel calcium 9.9 mg/dL 8.4-10 .4 Not Available [facility] [address] [place] [address], 91325, 05/29/2024 17:59:52 05/29/19 25 05/29/2024 gener al healt h panel total protein 7.0 g/dL 6.4-8. 3 Not Available [facility] [address] [place] [address], 47693, 05/29/2024 17:59:52 05/29/19 05/29/2024 gener al healt h panel albumin 4.8 g/dL 3.5-5. 3 Not Available [facility] [address] [place] [address], 41645, 05/29/2024 17:59:52 05/29/19 25 05/29/2024 gener al healt h panel ALP 94 U/L 44 - 127 Not Available [facility] [address] [place] [address], 74521, 05/29/2024 17:59:52 05/29/19 25 05/29/2024 gener al healt h panel AST (SGOT) 14 U/L 10-40 Not Available [facility] [address] [place] [address], 59720, 05/29/2024 17:59:52 05/29/19 25 05/29/2024 gener al healt h panel total bilirubin 0.5 mg/dL 0.2-1. 2 Not Available [facility] [address] [place] [address], 27584, 05/29/2024 17:59:52 05/29/19 25 05/29/2024 gener al healt h panel ALT (SGPT) 8 U/L 8-35 Not Available [facility] [address] [place] [address], 62843, 05/29/2024 17:59:52 05/29/19 25 05/29/2024 gener al healt h panel BUN 10 mg/dL 7-21 Not Available [facility] [address] [place] [address], 11401, 05/29/2024 17:59:52 05/29/19 25 05/29/2024 gener al healt h panel creatinine 0.8 mg/dL 0.7-1. 3 Not Available [facility] [address] [place] [address], 44987, 05/29/2024 17:59:52 05/29/1905/29/2024 gener al healt h panel CKD-epi GFR 107 eGFR was calcu lated using the 2020 CKD-E PI equat ion. (Material Handler 2Nd Shift carlos a Kidne y Disea se has an eGFR less than 60 mL/mi n/1.7 3mm for a perio d of three month s or more. ) This calcu latio n has not been valid ated for patie nt ages <18 or >90 years old. Not Available [facility] [address] [place] [address], 13484, 05/29/2024 17:59:52 05/29/1905/30/2024 dhea- sulfa te, serum DHEA-S 106.0 ug/dL 110.0- 431.7 low Not Available [facility] [address] [place] [address], 57098, 05/30/2024 08:10:16 05/29/1906/06/2024 testo stero ne, free + total , serum testosterone , free Not Available [facility] [address] [place] [address], 71375, 06/06/2024 13:38:22 05/29/1906/06/2024 testo stero ne, free + total , serum total testosterone 23.0 NG/dL 10.0-5 5.0 This test was colin chery and its perfo rmanc e presley cteri stics deter mined by [facility]. It has not been clear ed or appro alec by the Food and Drug Admin istra tion. Not Available [facility] [address] [place] [address], 45457, 06/06/2024 13:38:22 05/29/1906/06/2024 testo stero ne, free + total , serum testosterone , free 0.3 pg/mL 0.0-4. 2 Not Available [facility] [address] [place] [address], 23218, 06/06/2024 13:38:22 05/29/19 25 05/29/2024 GYNEC OLOGI C CYTOL OGY REPOR T quality nurse/aC Perfo rmed at: [facility] Order ing Provi madi: Rizwana [place] nt Name: GAVINO MAY Acces juan #: [id number] /A ge/Ge nder: 2005 (Age: 19) / F Proce dure Date: 2024 SP ECIME N RECEI ALEC * SureP ath Pap Only, Cervi veena/E ndoce rvica l Speci men Adequ acy Satis facto ry for evalu ation Endoc ervic al cell/ trans forma tion zone compo nent prese nt Cytol ogic Diagn osis Negat guillermina for intra epith elial lesio n or malig miguelangel MH EL ECTRO NICAL LY VERIF IED BY YONATHAN SULLIVAN (ASCP ) 2024 10:50 CL INICA L/MEN STRUA L HISTO RY Menst rual Hx: Ameno rrhea Contr acept guillermina Histo ry: Intra uteri ne Devic e Other Clini veena Condi tions : ICD-1 0 Code: z01.4 19 The Pap test is a scree sancho test for uteri ne cervi veena cance r with an inher ent, but low false negat guillermina rate. A biops y is recom sage d for any suspi cious or visib le lesio n. The patie nt shoul d be remin ded to consu lt a gynec ologi c care provi madi if they exper ience any suspi cious signs or sympt oms regar dless of the Pap test resul t. END OF REPOR T Not Available [facility] - [facility] [address] [place] [address], 15234, 06/06/2024 17:58:22 05/29/19 25 05/29/2024 gener al healt h panel ghp Not Available [facility] [address] [place] [address], [id number], 05/29/2024 17:53:00 05/29/19 25 05/29/2024 gener al healt h panel TSH3 1.513 uIU/m L .340-5 .600 Not Available [facility] [address] [place] [address], 50249, 05/29/2024 17:53:00 05/29/19 25 05/29/2024 gener al healt h panel WBC 8.0 K/uL 3.8-11 .2 Not Available [facility] [address] [place] [address], 90043, 05/29/2024 17:53:00 05/29/1905/29/2024 gener al healt h panel RBC 4.75 M/uL 3.92-5 .10 Not Available [facility] [address] [place] [address], [id number], 05/29/2024 17:53:00 05/29/19 25 05/29/2024 gener al healt h panel HGB 13.2 g/dL 11.8-1 5.3 Not Available [facility] [address] [place] [address], 28293, 05/29/2024 17:53:00 05/29/19 25 05/29/2024 gener al healt h panel HCT 39.2 % 36.5-4 4.8 Not Available [facility] [address] [place] [address], 36706, 05/29/2024 17:53:00 05/29/19 25 05/29/2024 gener al healt h panel MCV 82.5 fL 80.0-9 9.0 Not Available [facility] [address] [place] [address], 53457, 05/29/2024 17:53:00 05/29/19 25 05/29/2024 gener al healt h panel MCH 27.8 pg 25.5-3 3.6 Not Available [facility] [address] [place] [address], 36627, 05/29/2024 17:53:00 05/29/19 25 05/29/2024 gener al healt h panel MCHC 33.7 g/dL 32.0-3 6.0 Not Available [facility] [address] [place] [address], 82621, 05/29/2024 17:53:00 05/29/19 25 05/29/2024 gener al healt h panel RDW-SD 37.6 fL 35.1 - 46.3 Not Available [facility] [address] [place] [address], 54867, 05/29/2024 17:53:00 05/29/19 25 05/29/2024 gener al healt h panel plt 213 K/uL 130-40 0 Not Available [facility] [address] [place] [address], [id number], 05/29/2024 17:53:00 05/29/19 25 05/29/2024 gener al healt h panel MPV 11.7 fL 9.3-12 .8 Not Available [facility] [address] [place] [address], 86163, 05/29/2024 17:53:00 05/29/19 25 05/29/2024 gener al healt h panel carol% 72.5 % not estab Not Available [facility] [address] [place] [address], [id number], 05/29/2024 17:53:00 05/29/19 25 05/29/2024 gener al healt h panel lym% 19.5 % not estab Not Available [facility] [address] [place] [address], 48815, 05/29/2024 17:53:00 05/29/19 25 05/29/2024 gener al healt h panel mono% 7.3 % not estab Not Available [facility] [address] [place] [address], [id number], 05/29/2024 17:53:00 05/29/19 25 05/29/2024 gener al healt h panel eos% 0.1 % not estab Not Available [facility] [address] [place] [address], [id number], 05/29/2024 17:53:00 05/29/19 25 05/29/2024 gener al healt h panel baso% 0.3 % not estab Not Available [facility] [address] [place] [address], 07910, 05/29/2024 17:53:00 05/29/19 25 05/29/2024 gener al healt h panel abs carol 5.8 K/uL 1.8-7. 5 Not Available [facility] [address] [place] [address], 29472, 05/29/2024 17:53:00 05/29/19 25 05/29/2024 gener al healt h panel abs lym 1.6 K/uL 1.1-3. 3 Not Available [facility] [address] [place] [address], [id number], 05/29/2024 17:53:00 05/29/19 25 05/29/2024 gener al healt h panel abs mono 0.6 K/uL 0.1-1. 0 Not Available [facility] [address] [place] [address], 03562, 05/29/2024 17:53:00 05/29/19 25 05/29/2024 gener al healt h panel abs eos 0.0 K/uL 0.0-0. 7 Not Available [facility] [address] [place] [address], 73286, 05/29/2024 17:53:00 05/29/19 25 05/29/2024 gener al healt h panel abs baso 0.0 K/uL 0.0-0. 2 Not Available [facility] [address] [place] [address], 81338, 05/29/2024 17:53:00 05/29/19 25 05/29/2024 gener al healt h panel imm. gran % 0.3 % 0-5 Not Available [facility] [address] [place] [address], 54899, 05/29/2024 17:53:00 05/29/19 25 05/29/2024 gener al healt h panel NRBC % 0.0 % 0.0-0. 2 Not Available [facility] [address] [place] [address], 77316, 05/29/2024 17:53:00 05/29/19 25 05/29/2024 gener al healt h panel sodium 142 mmol/ L 136-14 6 Not Available [facility] [address] [place] [address], 19406, 05/29/2024 17:53:00 05/29/19 25 05/29/2024 gener al healt h panel potassium PENDIN G Not Available [facility] [address] [place] [address], 91668, 05/29/2024 17:53:00 05/29/19 25 05/29/2024 gener al healt h panel chloride 105 mmol/ L 98-110 Not Available [facility] [address] [place] [address], 52424, 05/29/2024 17:53:00 05/29/19 25 05/29/2024 gener al healt h panel CO2 27 mEq/L 20-32 Not Available [facility] [address] [place] [address], 26096, 05/29/2024 17:53:00 05/29/19 25 05/29/2024 gener al healt h panel anion gap PENDIN G Not Available [facility] [address] [place] [address], 05096, 05/29/2024 17:53:00 05/29/19 25 05/29/2024 gener al healt h panel glucose 96 mg/dL 70-100 Not Available [facility] [address] [place] [address], 71630, 05/29/2024 17:53:00 05/29/19 25 05/29/2024 gener al healt h panel calcium 9.9 mg/dL 8.4-10 .4 Not Available [facility] [address] [place] [address], 67872, 05/29/2024 17:53:00 05/29/19 25 05/29/2024 gener al healt h panel total protein 7.0 g/dL 6.4-8. 3 Not Available [facility] [address] [place] [address], 70658, 05/29/2024 17:53:00 05/29/19 25 05/29/2024 gener al healt h panel albumin 4.8 g/dL 3.5-5. 3 Not Available [facility] [address] [place] [address], 90624, 05/29/2024 17:53:00 05/29/19 25 05/29/2024 gener al healt h panel ALP 94 U/L 44 - 127 Not Available [facility] [address] [place] [address], 17034, 05/29/2024 17:53:00 05/29/19 25 05/29/2024 gener al healt h panel AST (SGOT) 14 U/L 10-40 Not Available [facility] [address] [place] [address], 98750, 05/29/2024 17:53:00 05/29/19 25 05/29/2024 gener al healt h panel total bilirubin 0.5 mg/dL 0.2-1. 2 Not Available [facility] [address] [place] [address], 51344, 05/29/2024 17:53:00 05/29/19 25 05/29/2024 gener al healt h panel ALT (SGPT) 8 U/L 8-35 Not Available [facility] [address] [place] [address], 09638, 05/29/2024 17:53:00 05/29/19 25 05/29/2024 gener al healt h panel BUN 10 mg/dL 7-21 Not Available [facility] [address] [place] [address], 03186, 05/29/2024 17:53:00 05/29/19 25 05/29/2024 gener al healt h panel creatinine 0.8 mg/dL 0.7-1. 3 Not Available [facility] [address] [place] [address], 47217, 05/29/2024 17:53:00 05/29/19 25 05/29/2024 gener al healt h panel CKD-epi GFR 107 eGFR was calcu lated using the 2020 CKD-E PI equat ion. (Material Handler 2[employer] Shift carlos a Kidne y Disea se has an eGFR less than 60 mL/mi n/1.7 3mm for a perio d of three month s or more. ) This calcu latio n has not been valid ated for patie nt ages <18 or >90 years old. Not Available [facility] [address] [place] [address], 03844, 05/29/2024 17:53:00 05/29/1905/29/2024 gener al healt h panel ghp Not Available [facility] [address] [place] [address], 22061, 05/29/2024 17:42:01 05/29/19 25 05/29/2024 gener al healt h panel TSH3 PENDIN G Not Available [facility] [address] [place] [address], 36590, 05/29/2024 17:42:01 05/29/19 25 05/29/2024 gener al healt h panel WBC 8.0 K/uL 3.8-11 .2 Not Available [facility] [address] [place] [address], 94960, 05/29/2024 17:42:01 05/29/19 25 05/29/2024 gener al healt h panel RBC 4.75 M/uL 3.92-5 .10 Not Available [facility] [address] [place] [address], 19445, 05/29/2024 17:42:01 05/29/19 25 05/29/2024 gener al healt h panel HGB 13.2 g/dL 11.8-1 5.3 Not Available [facility] [address] [place] [address], 33332, 05/29/2024 17:42:01 05/29/19 25 05/29/2024 gener al healt h panel HCT 39.2 % 36.5-4 4.8 Not Available [facility] [address] [place] [address], 90195, 05/29/2024 17:42:01 05/29/19 25 05/29/2024 gener al healt h panel MCV 82.5 fL 80.0-9 9.0 Not Available [facility] [address] [place] [address], 79166, 05/29/2024 17:42:01 05/29/19 25 05/29/2024 gener al healt h panel MCH 27.8 pg 25.5-3 3.6 Not Available [facility] [address] [place] [address], 18322, 05/29/2024 17:42:01 05/29/19 25 05/29/2024 gener al healt h panel MCHC 33.7 g/dL 32.0-3 6.0 Not Available [facility] [address] [place] [address], 97904, 05/29/2024 17:42:01 05/29/19 25 05/29/2024 gener al healt h panel RDW-SD 37.6 fL 35.1 - 46.3 Not Available [facility] [address] [place] [address], 43963, 05/29/2024 17:42:01 05/29/19 25 05/29/2024 gener al healt h panel plt 213 K/uL 130-40 0 Not Available [facility] [address] [place] [address], 63833, 05/29/2024 17:42:01 05/29/19 25 05/29/2024 gener al healt h panel MPV 11.7 fL 9.3-12 .8 Not Available [facility] [address] [place] [address], 82853, 05/29/2024 17:42:01 05/29/19 25 05/29/2024 gener al healt h panel carol% 72.5 % not estab Not Available [facility] [address] [place] [address], 07353, 05/29/2024 17:42:01 05/29/19 25 05/29/2024 gener al healt h panel lym% 19.5 % not estab Not Available [facility] [address] [place] [address], 43750, 05/29/2024 17:42:01 05/29/19 25 05/29/2024 gener al healt h panel mono% 7.3 % not estab Not Available [facility] [address] [place] [address], 53614, 05/29/2024 17:42:01 05/29/19 25 05/29/2024 gener al healt h panel eos% 0.1 % not estab Not Available [facility] [address] [place] [address], 02494, 05/29/2024 17:42:01 05/29/19 25 05/29/2024 gener al healt h panel baso% 0.3 % not estab Not Available [facility] [address] [place] [address], 09455, 05/29/2024 17:42:01 05/29/19 25 05/29/2024 gener al healt h panel abs carol 5.8 K/uL 1.8-7. 5 Not Available [facility] [address] [place] [address], 00936, 05/29/2024 17:42:01 05/29/19 25 05/29/2024 gener al healt h panel abs lym 1.6 K/uL 1.1-3. 3 Not Available [facility] [address] [place] [address], 12856, 05/29/2024 17:42:01 05/29/19 25 05/29/2024 gener al healt h panel abs mono 0.6 K/uL 0.1-1. 0 Not Available [facility] [address] [place] [address], 76062, 05/29/2024 17:42:01 05/29/19 25 05/29/2024 gener al healt h panel abs eos 0.0 K/uL 0.0-0. 7 Not Available [facility] [address] [place] [address], 29535, 05/29/2024 17:42:01 05/29/19 25 05/29/2024 gener al healt h panel abs baso 0.0 K/uL 0.0-0. 2 Not Available [facility] [address] [place] [address], 08531, 05/29/2024 17:42:01 05/29/19 25 05/29/2024 gener al healt h panel imm. gran % 0.3 % 0-5 Not Available [facility] [address] [place] [address], 65117, 05/29/2024 17:42:01 05/29/19 25 05/29/2024 gener al healt h panel NRBC % 0.0 % 0.0-0. 2 Not Available [facility] [address] [place] [address], 53017, 05/29/2024 17:42:01 05/29/19 25 05/29/2024 gener al healt h panel sodium 142 mmol/ L 136-14 6 Not Available [facility] [address] [place] [address], 58681, 05/29/2024 17:42:01 05/29/19 25 05/29/2024 gener al healt h panel potassium PENDIN G Not Available [facility] [address] [place] [address], 19393, 05/29/2024 17:42:01 05/29/19 25 05/29/2024 gener al healt h panel chloride 105 mmol/ L 98-110 Not Available [facility] [address] [place] [address], 97498, 05/29/2024 17:42:01 05/29/19 25 05/29/2024 gener al healt h panel CO2 27 mEq/L 20-32 Not Available [facility] [address] [place] [address], 60180, 05/29/2024 17:42:01 05/29/19 25 05/29/2024 gener al healt h panel anion gap PENDIN G Not Available [facility] [address] [place] [address], 02813, 05/29/2024 17:42:01 05/29/19 25 05/29/2024 gener al healt h panel glucose 96 mg/dL 70-100 Not Available [facility] [address] [place] [address], 61147, 05/29/2024 17:42:01 05/29/19 25 05/29/2024 gener al healt h panel calcium 9.9 mg/dL 8.4-10 .4 Not Available [facility] [address] [place] [address], 51380, 05/29/2024 17:42:01 05/29/19 25 05/29/2024 gener al healt h panel total protein 7.0 g/dL 6.4-8. 3 Not Available [facility] [address] [place] [address], 11792, 05/29/2024 17:42:01 05/29/19 25 05/29/2024 gener al healt h panel albumin 4.8 g/dL 3.5-5. 3 Not Available [facility] [address] [place] [address], 23589, 05/29/2024 17:42:01 05/29/19 25 05/29/2024 gener al healt h panel ALP 94 U/L 44 - 127 Not Available [facility] [address] [place] [address], 36978, 05/29/2024 17:42:01 05/29/19 25 05/29/2024 gener al healt h panel AST (SGOT) 14 U/L 10-40 Not Available [facility] [address] [place] [address], 56821, 05/29/2024 17:42:01 05/29/19 25 05/29/2024 gener al healt h panel total bilirubin 0.5 mg/dL 0.2-1. 2 Not Available [facility] [address] [place] [address], 75765, 05/29/2024 17:42:01 05/29/19 25 05/29/2024 gener al healt h panel ALT (SGPT) 8 U/L 8-35 Not Available [facility] [address] [place] [address], 45068, 05/29/2024 17:42:01 05/29/19 25 05/29/2024 gener al healt h panel BUN 10 mg/dL 7-21 Not Available [facility] [address] [place] [address], 77833, 05/29/2024 17:42:01 05/29/19 25 05/29/2024 gener al healt h panel creatinine 0.8 mg/dL 0.7-1. 3 Not Available [facility] [address] [place] [address], 01994, 05/29/2024 17:42:01 05/29/19 25 05/29/2024 gener al healt h panel CKD-epi GFR 107 eGFR was calcu lated using the 2020 CKD-E PI equat ion. ([employer] 2[employer] Shift carlos a Kidne y Disea se has an eGFR less than 60 mL/mi n/1.7 3mm for a perio d of three month s or more. ) This calcu latio n has not been valid ated for patie nt ages <18 or >90 years old. Not Available [facility] [address] [place] [address], 38986, 05/29/2024 17:42:01 05/29/19 25 05/29/2024 gener al healt h panel ghp Not Available [facility] [address] [place] [address], 19642, 05/29/2024 16:43:21 05/29/19 25 05/29/2024 gener al healt h panel TSH3 PENDIN G Not Available [facility] [address] [place] [address], 68975, 05/29/2024 16:43:21 05/29/19 25 05/29/2024 gener al healt h panel WBC 8.0 K/uL 3.8-11 .2 Not Available [facility] [address] [place] [address], 73256, 05/29/2024 16:43:21 05/29/19 25 05/29/2024 gener al healt h panel RBC 4.75 M/uL 3.92-5 .10 Not Available [facility] [address] [place] [address], 77464, 05/29/2024 16:43:21 05/29/19 25 05/29/2024 gener al healt h panel HGB 13.2 g/dL 11.8-1 5.3 Not Available [facility] [address] [place] [address], 73090, 05/29/2024 16:43:21 05/29/19 25 05/29/2024 gener al healt h panel HCT 39.2 % 36.5-4 4.8 Not Available [facility] [address] [place] [address], 61504, 05/29/2024 16:43:21 05/29/19 25 05/29/2024 gener al healt h panel MCV 82.5 fL 80.0-9 9.0 Not Available [facility] [address] [place] [address], 06391, 05/29/2024 16:43:21 05/29/19 25 05/29/2024 gener al healt h panel MCH 27.8 pg 25.5-3 3.6 Not Available [facility] [address] [place] [address], 87893, 05/29/2024 16:43:21 05/29/19 25 05/29/2024 gener al healt h panel MCHC 33.7 g/dL 32.0-3 6.0 Not Available [facility] [address] [place] [address], 31550, 05/29/2024 16:43:21 05/29/19 25 05/29/2024 gener al healt h panel RDW-SD 37.6 fL 35.1 - 46.3 Not Available [facility] [address] [place] [address], 22653, 05/29/2024 16:43:21 05/29/19 25 05/29/2024 gener al healt h panel plt 213 K/uL 130-40 0 Not Available [facility] [address] [place] [address], 57147, 05/29/2024 16:43:21 05/29/19 25 05/29/2024 gener al healt h panel MPV 11.7 fL 9.3-12 .8 Not Available [facility] [address] [place] [address], 58687, 05/29/2024 16:43:21 05/29/19 25 05/29/2024 gener al healt h panel carol% 72.5 % not estab Not Available [facility] [address] [place] [address], 06940, 05/29/2024 16:43:21 05/29/19 25 05/29/2024 gener al healt h panel lym% 19.5 % not estab Not Available [facility] [address] [place] [address], 61072, 05/29/2024 16:43:21 05/29/19 25 05/29/2024 gener al healt h panel mono% 7.3 % not estab Not Available [facility] [address] [place] [address], 21092, 05/29/2024 16:43:21 05/29/19 25 05/29/2024 gener al healt h panel eos% 0.1 % not estab Not Available [facility] [address] [place] [address], 93637, 05/29/2024 16:43:21 05/29/19 25 05/29/2024 gener al healt h panel baso% 0.3 % not estab Not Available [facility] [address] [place] [address], 56168, 05/29/2024 16:43:21 05/29/19 25 05/29/2024 gener al healt h panel abs carol 5.8 K/uL 1.8-7. 5 Not Available [facility] [address] [place] [address], 10389, 05/29/2024 16:43:21 05/29/19 25 05/29/2024 gener al healt h panel abs lym 1.6 K/uL 1.1-3. 3 Not Available [facility] [address] [place] [address], 25173, 05/29/2024 16:43:21 05/29/19 25 05/29/2024 gener al healt h panel abs mono 0.6 K/uL 0.1-1. 0 Not Available [facility] [address] [place] [address], 11915, 05/29/2024 16:43:21 05/29/19 25 05/29/2024 gener al healt h panel abs eos 0.0 K/uL 0.0-0. 7 Not Available [facility] [address] [place] [address], 62132, 05/29/2024 16:43:21 05/29/19 25 05/29/2024 gener al healt h panel abs baso 0.0 K/uL 0.0-0. 2 Not Available [facility] [address] [place] [address], 91299, 05/29/2024 16:43:21 05/29/19 25 05/29/2024 gener al healt h panel imm. gran % 0.3 % 0-5 Not Available [facility] [address] [place] [address], 89728, 05/29/2024 16:43:21 05/29/19 25 05/29/2024 gener al healt h panel NRBC % 0.0 % 0.0-0. 2 Not Available [facility] [address] [place] [address], [id number], 05/29/2024 16:43:21 05/29/19 25 05/29/2024 gener al healt h panel sodium 142 mmol/ L 136-14 6 Not Available [facility] [address] [place] [address], 52626, 05/29/2024 16:43:21 05/29/19 25 05/29/2024 gener al healt h panel potassium PENDIN G Not Available [facility] [address] [place] [address], 75927, 05/29/2024 16:43:21 05/29/19 25 05/29/2024 gener al healt h panel chloride 105 mmol/ L 98-110 Not Available [facility] [address] [place] [address], 38064, 05/29/2024 16:43:21 05/29/19 25 05/29/2024 gener al healt h panel CO2 27 mEq/L 20-32 Not Available [facility] [address] [place] [address], 90120, 05/29/2024 16:43:21 05/29/19 25 05/29/2024 gener al healt h panel anion gap PENDIN G Not Available [facility] [address] [place] [address], 33953, 05/29/2024 16:43:21 05/29/19 25 05/29/2024 gener al healt h panel glucose 96 mg/dL 70-100 Not Available [facility] [address] [place] [address], 37995, 05/29/2024 16:43:21 05/29/19 25 05/29/2024 gener al healt h panel calcium PENDIN G Not Available [facility] [address] [place] [address], 71274, 05/29/2024 16:43:21 05/29/19 25 05/29/2024 gener al healt h panel total protein 7.0 g/dL 6.4-8. 3 Not Available [facility] [address] [place] [address], 22666, 05/29/2024 16:43:21 05/29/19 25 05/29/2024 gener al healt h panel albumin 4.8 g/dL 3.5-5. 3 Not Available [facility] [address] [place] [address], 58401, 05/29/2024 16:43:21 05/29/19 25 05/29/2024 gener al healt h panel ALP 94 U/L 44 - 127 Not Available [facility] [address] [place] [address], [id number], 05/29/2024 16:43:21 05/29/19 25 05/29/2024 gener al healt h panel AST (SGOT) 14 U/L 10-40 Not Available [facility] [address] [place] [address], 21758, 05/29/2024 16:43:21 05/29/19 25 05/29/2024 gener al healt h panel total bilirubin 0.5 mg/dL 0.2-1. 2 Not Available [facility] [address] [place] [address], 32142, 05/29/2024 16:43:21 05/29/19 25 05/29/2024 gener al healt h panel ALT (SGPT) 8 U/L 8-35 Not Available [facility] [address] [place] [address], 96474, 05/29/2024 16:43:21 05/29/19 25 05/29/2024 gener al healt h panel BUN 10 mg/dL 7-21 Not Available [facility] [address] [place] [address], 56410, 05/29/2024 16:43:21 05/29/19 25 05/29/2024 gener al healt h panel creatinine 0.8 mg/dL 0.7-1. 3 Not Available [facility] [address] [place] [address], 32782, 05/29/2024 16:43:21 05/29/19 25 05/29/2024 gener al healt h panel CKD-epi GFR 107 eGFR was calcu lated using the 2020 CKD-E PI equat ion. (Material Handler 2[employer] Shift carlos a Kidne y Disea se has an eGFR less than 60 mL/mi n/1.7 3mm for a perio d of three month s or more. ) This calcu latio n has not been valid ated for patie nt ages <18 or >90 years old. Not Available [facility] [address] [place] [address], 60937, 05/29/2024 16:43:21 05/29/19 25 05/29/2024 gener al healt h panel ghp Not Available [facility] [address] [place] [address], 23737, 05/29/2024 15:57:38 05/29/19 25 05/29/2024 gener al healt h panel TSH3 PENDIN G Not Available [facility] [address] [place] [address], 47925, 05/29/2024 15:57:38 05/29/19 25 05/29/2024 gener al healt h panel WBC 8.0 K/uL 3.8-11 .2 Not Available [facility] [address] [place] [address], 40974, 05/29/2024 15:57:38 05/29/19 25 05/29/2024 gener al healt h panel RBC 4.75 M/uL 3.92-5 .10 Not Available [facility] [address] [place] [address], 43719, 05/29/2024 15:57:38 05/29/19 25 05/29/2024 gener al healt h panel HGB 13.2 g/dL 11.8-1 5.3 Not Available [facility] [address] [place] [address], 17698, 05/29/2024 15:57:38 05/29/19 25 05/29/2024 gener al healt h panel HCT 39.2 % 36.5-4 4.8 Not Available [facility] [address] [place] [address], 69280, 05/29/2024 15:57:38 05/29/19 25 05/29/2024 gener al healt h panel MCV 82.5 fL 80.0-9 9.0 Not Available [facility] [address] [place] [address], 03477, 05/29/2024 15:57:38 05/29/19 25 05/29/2024 gener al healt h panel MCH 27.8 pg 25.5-3 3.6 Not Available [facility] [address] [place] [address], 55759, 05/29/2024 15:57:38 05/29/19 25 05/29/2024 gener al healt h panel MCHC 33.7 g/dL 32.0-3 6.0 Not Available [facility] [address] [place] [address], 34401, 05/29/2024 15:57:38 05/29/19 25 05/29/2024 gener al healt h panel RDW-SD 37.6 fL 35.1 - 46.3 Not Available [facility] [address] [place] [address], 57930, 05/29/2024 15:57:38 05/29/19 25 05/29/2024 gener al healt h panel plt 213 K/uL 130-40 0 Not Available [facility] [address] [place] [address], [id number], 05/29/2024 15:57:38 05/29/19 25 05/29/2024 gener al healt h panel MPV 11.7 fL 9.3-12 .8 Not Available [facility] [address] [place] [address], [id number], 05/29/2024 15:57:38 05/29/19 25 05/29/2024 gener al healt h panel carol% 72.5 % not estab Not Available [facility] [address] [place] [address], [id number], 05/29/2024 15:57:38 05/29/19 25 05/29/2024 gener al healt h panel lym% 19.5 % not estab Not Available [facility] [address] [place] [address], [id number], 05/29/2024 15:57:38 05/29/19 25 05/29/2024 gener al healt h panel mono% 7.3 % not estab Not Available [facility] [address] [place] [address], [id number], 05/29/2024 15:57:38 05/29/19 25 05/29/2024 gener al healt h panel eos% 0.1 % not estab Not Available [facility] [address] [place] [address], [id number], 05/29/2024 15:57:38 05/29/19 25 05/29/2024 gener al healt h panel baso% 0.3 % not estab Not Available [facility] [address] [place] [address], [id number], 05/29/2024 15:57:38 05/29/19 25 05/29/2024 gener al healt h panel abs carol 5.8 K/uL 1.8-7. 5 Not Available [facility] [address] [place] [address], [id number], 05/29/2024 15:57:38 05/29/19 25 05/29/2024 gener al healt h panel abs lym 1.6 K/uL 1.1-3. 3 Not Available [facility] [address] [place] [address], [id number], 05/29/2024 15:57:38 05/29/19 25 05/29/2024 gener al healt h panel abs mono 0.6 K/uL 0.1-1. 0 Not Available [facility] [address] [place] [address], [id number], 05/29/2024 15:57:38 05/29/19 25 05/29/2024 gener al healt h panel abs eos 0.0 K/uL 0.0-0. 7 Not Available [facility] [address] [place] [address], [id number], 05/29/2024 15:57:38 05/29/19 25 05/29/2024 gener al healt h panel abs baso 0.0 K/uL 0.0-0. 2 Not Available [facility] [address] [place] [address], [id number], 05/29/2024 15:57:38 05/29/19 25 05/29/2024 gener al healt h panel imm. gran % 0.3 % 0-5 Not Available Ar Onl [facility] [address] [place] [address], [id number], 05/29/2024 15:57:38 05/29/19 25 05/29/2024 gener al healt h panel NRBC % 0.0 % 0.0-0. 2 Not Available [facility] [address] [place] [address], [id number], 05/29/2024 15:57:38 05/29/19 25 05/29/2024 gener al healt h panel sodium PENDIN G Not Available [facility] [address] [place] [address], [id number], 05/29/2024 15:57:38 05/29/19 25 05/29/2024 gener al healt h panel potassium PENDIN G Not Available [facility] [address] [place] [address], [id number], 05/29/2024 15:57:38 05/29/19 25 05/29/2024 gener al healt h panel chloride PENDIN G Not Available [facility] [address] [place] [address], [id number], 05/29/2024 15:57:38 05/29/19 25 05/29/2024 gener al healt h panel CO2 PENDIN G Not Available [facility] [address] [place] [address], [id number], 05/29/2024 15:57:38 05/29/19 25 05/29/2024 gener al healt h panel anion gap PENDIN G Not Available [facility] [address] [place] [address], [id number], 05/29/2024 15:57:38 05/29/19 25 05/29/2024 gener al healt h panel glucose PENDIN G Not Available [facility] [address] [place] [address], [id number], 05/29/2024 15:57:38 05/29/19 25 05/29/2024 gener al healt h panel calcium PENDIN G Not Available [facility] [address] [place] [address], [id number], 05/29/2024 15:57:38 05/29/19 25 05/29/2024 gener al healt h panel total protein PENDIN G Not Available [facility] [address] [place] [address], [id number], 05/29/2024 15:57:38 05/29/19 25 05/29/2024 gener al healt h panel albumin PENDIN G Not Available [facility] [address] [place] [address], [id number], 05/29/2024 15:57:38 05/29/19 25 05/29/2024 gener al healt h panel ALP PENDIN G Not Available [facility] [address] [place] [address], [id number], 05/29/2024 15:57:38 05/29/19 25 05/29/2024 gener al healt h panel AST (SGOT) PENDIN G Not Available [facility] [address] [place] [address], [id number], 05/29/2024 15:57:38 05/29/19 25 05/29/2024 gener al healt h panel total bilirubin PENDIN G Not Available [facility] [address] [place] [address], 65515, 05/29/2024 15:57:38 05/29/19 25 05/29/2024 gener al healt h panel ALT (SGPT) PENDIN G Not Available [facility] [address] [place] [address], [id number], 05/29/2024 15:57:38 05/29/19 25 05/29/2024 gener al healt h panel BUN PENDIN G Not Available [facility] [address] [place] [address], 86584, 05/29/2024 15:57:38 05/29/19 25 05/29/2024 gener al healt h panel creatinine PENDIN G Not Available [facility] [address] [place] [address], 35304, 05/29/2024 15:57:38 05/29/19 25 05/29/2024 gener al healt h panel CKD-epi GFR PENDIN G Not Available [facility] - [facility] [address] [place] [address], [id number], 05/29/2024 15:57:38 02/11/20 24 02/11/2024 US, trans vagin [facility] [address] [address] Teleph one [phone] Name: Gavino James 1519 Exam Date: 2023 Age: 18 Physic farnaz: MD Raghu, Hellen pringle : 2005 Examin ation: US PELVIC NON-OB TRANSV AGINAL INDICA TION: Pelvic pain Transv aginal images of the pelvis are obtain ed today. It shows the uterus to be anteve rted in orient ation, measur ing 6.91 x 4.95 x 3.21 cm. The endome trial thickn ess is 3.88 mm. The myomet rium and cervix are largel y unrema rkable . There is an echoge carlos a linear struct ure within the endome trial cavity which repres ents the patien t's intrau terine device in the proper locati on. 3-D imagin g confir ms positi oning. The right ovary measur es 3.45 x 2.76 x 3.48 cm. The left ovary measur es 3.49 x 1.99 x 2.00 cm. There are multip le small follic les bilate rally. Dopple r confir ms good blood flow within both ovarie s. The cul-de -sac is unrema rkable with no free fluid. IMPRES JUAN: 1. Anteve rted uterus with an intrau terine device locate d proper ly within the endome trium 2. No free fluid or adnexa l masses Electr onical ly signed in [place] cribe by: HELLEN BOSTON MD on: 12:05 PM cc: Page PAGE 1 of NUMIAG ES 1 INTERFACE Sc Only - [facility] [address], [address], 02/11/2024 13:08:39 Result Notes None recorded. Problems Name Problem SNOMED Code Status Onset Date Resolution Date Notes Provider Name and Address Organization Details Recorded Time Hirsutism 388904724 Active 024 Violeta Boston MD [address] [place] [address], [phone], [facility] 5 14:20:14 Pain in pelvis 44700373 Active 024 Erum Aden [facility] 4 12:39:38 Flank pain 762353312 Active 024 Erum Aden [facility] 4 11:52:10 Vaginal discharge 868039597 Active 024 Erum Aden [facility] 4 11:58:46 Acute sinusitis 22260769 Active 025 Kristen Vee MD [address] [place] [address], [address], [facility] 5 12:41:13 Anxiety 01186465 Active 025 Aranza Shu slade [facility] 5 15:48:37 Problem Notes None recorded. Procedures Surgical History Date Name Laterality Status Provider Name and Address Organization Details Recorded Time Colonoscopy with biopsy completed Not Available Health Note 10/31/2023 21:36:05 Imaging Results None recorded. Procedure Notes None recorded. Medical Equipment None Reported. Allergies Allergen ID Allergen Name Allergen Category Reaction Reaction Severity Criticality Documentation Date Start Date Code Code System Note Provider Name and Address Organization Details Recorded Time 0869043 ampicilli n medicatio n rash Not available Not available 11/01/2023 733 RxNorm ReyLynn Jose Angel [facility] 4 12:08:17 0792535 ampicilli n trihydrat e medicatio n rash Not available Not available 01/26/20242022 94780 5 RxNorm React ion: Rash; Comme nt: React ion Date: 04 Apr 2023 Annot ation s: CONLO N ([place] Exiti ng), ENRIQUE H 2022 1:35P M rash aroun d eyes only (happ ened once befor e with julieth fletcher in [place]); ; Not Available [facility] 20:[facility]23 Medications Name Sig Start Date Stop Date Status Note LastModified by Organization Details LastModified Time verapamil ER (SR) 120 mg tablet,exte nded release TAKE 1 TABLET BY MOUTH EVERY DAY DIRECTED 10/31 completed Not Available Not Available Not Available doxycycline hyclate 100 mg capsule TAKE 1 CAPSULE BY MOUTH TWICE DAILY 10/24 completed Not Available Not Available Not Available azithromyci n 250 mg tablet TAKE 2 TABLETS BY MOUTH FOR 1 DAY THEN TAKE 1 TABLET BY MOUTH DAILY FOR 4 DAYS 10/31 completed Not Available Not Available Not Available fluconazole 150 mg tablet TAKE 1 TABLET BY MOUTH NOW AND TAKE 1 TABLET AGAIN IN 2 DAYS DIRECTED 10/31 completed Not Available Not Available Not Available ampicillin 500 mg capsule TAKE 1 CAPSULE BY MOUTH TWICE DAILY 10/31 completed Not Available Not Available Not Available sumatriptan 100 mg tablet TAKE 1 TABLET BY MOUTH AT ONSET OF MIGRAINE HEADACHE. MAY REPEAT IN 2 HOURS NEEDED 10/31 completed Not Available Not Available Not Available tretinoin 0.025 % topical cream APPLY PEA SIZED AMOUNT TOPICALLY TO FACE AT NIGHT 10/31 completed Not Available Not Available Not Available sumatriptan 50 mg tablet TAKE 1 TABLET BY MOUTH AT ONSET OF HEADACHE. MAY REPEAT 1 TIME IN 2 HOURS 05/29 completed Not Available Not Available Not Available metronidazo le 500 mg tablet TAKE 1 TABLET BY MOUTH TWICE DAILY FOR 7 DAYS 05/29 completed Not Available Not Available Not Available tretinoin 0.05 % topical cream APPLY THIN LAYER TOPICALLY TO FACE EVERY NIGHT AT BEDTIME. MAY ALTERNATE WITH 0.025 CREAM 10/31 completed Not Available Not Available Not Available fluoxetine 20 mg tablet Take half tablet daily for 2 weeks then increase to full tablet daily. 09/25 completed Not Available Not Available Not Available fluoxetine 10 mg capsule TAKE 1 CAPSULE BY MOUTH EVERY DAY active Not Available Not Available No t Available triamcinolo ne acetonide 0.025 % topical ointment 10/31 completed Not Available Not Available Not Available methylpredn isolone 4 mg tablets in a dose pack FOLLOW PACKAGE DIRECTION S 05/29 completed Not Available Not Available Not Available albuterol sulfate HFA 90 mcg/actuati on aerosol inhaler INHALE 1 TO 2 PUFFS BY MOUTH EVERY 4 TO 6 HOURS NEEDED FOR COUGH OR TIGHTNESS active Not Available Not Available No t Available fluoxetine 20 mg capsule TAKE 1 CAPSULE BY MOUTH EVERY DAY active Not Available Not Available No t Available spironolact one 50 mg tablet TAKE 1 TABLET BY MOUTH EVERY DAY active Not Available Not Available No t Available clindamycin 1 % lotion APPLY SPARINGLY AND MASSAGE TOPICALLY TO THE AFFECTED AREA EVERY DAY IN THE MORNING. MAY USE 2 TIMES DAILY NEEDED 10/31 completed Not Available Not Available Not Available escitalopra m 10 mg tablet TAKE 1/2 TABLET BY MOUTH DAILY FOR 1 WEEK THEN TAKE 1 TABLET BY MOUTH DAILY 10/31 completed Not Available Not Available Not Available nitrofurant oin monohydrate /macrocryst als 100 mg capsule TAKE 1 CAPSULE BY MOUTH EVERY 12 HOURS FOR 5 DAYS 05/29 completed Not Available Not Available Not Available Estarylla 0.25 mg-0.035 mg tablet TAKE 1 TABLET BY MOUTH DAILY. TAKE CONTINUOU SLY 10/31 completed Not Available Not Available Not Available Vitals Date Recorded Body height Body mass index (BMI) Body weight Systolic And Diastolic Provider Name and Address Organization Details Last Updated DateTime 05/29/2024 166.37 cm 29 kg/m2 58822.13 g 130/88 mm[Hg] Erum Aden [facility] 05/29/2024 13:53:11 Date Recorded Body height Body mass index (BMI) Body weight Body temperature Heart rate Oxygen saturation Systolic And Diastolic Provider Name and Address Organization Details Last Updated DateTime 166.37 cm 28.5 kg/m2 02883.0 7 g 97.9 [degF] 86 /min 98 % 106/74 mm[Hg] Shirley Elise [facility] 12:29:56 Date Recorded Body height Body mass index (BMI) Body mass index (BMI) [Percentile] Per age and sex Body weight Systolic And Diastolic Provider Name and Address Organization Details Last Updated DateTime 02/11/2024 166.37 cm 29 kg/m2 91 % 89138.8 5 g 128/84 mm[Hg] Erum Aden [facility] 11:58:39 Social History Question Answer Notes LastModified by Organizat ion Details LastModified Time Tobacco Smoking Status Never Smoker Erum arana, [facility] 05/29/2024 13:47:59 Do You Have An Advance Directive? No [email or web address] Information not available 10/31/2023 Is Blood Transfusion Acceptable In An Emergency? Yes [email or web address] Information not available 11/01/2023 What Is Your Level Of Caffeine Consumption? Moderate [email or web address] Information not available 10/31/2023 What Is Your Code Status? Full Code [email or web address] Information not available 11/01/2023 How Many Times Per Week Do You Exercise? 3-4 Times Per Week [email or web address] Information not available 10/31/2023 Do You Have A Medical Power Of Soda Flaker? No [email or web address] Information not available 10/31/2023 What Was The Date Of Your Most Recent Tobacco Screening? 11/01/2023 [email or web address] Information not available 10/31/2023 What Is Your Relationship Status? Single [email or web address] Information not available 10/31/2023 Sex: Unknown Functional Status Question Answer Note LastModified by Organizat ion Details LastModified Time How many times per week do you consume alcohol? Less than 1 time per week [email or web address] Information not available 10/31/2023 Do you use any illicit or recreational drugs? No [email or web address] Information not available 10/31/2023 What is your level of alcohol consumption? Occasional [email or web address] Information not available 10/31/2023 Are you currently employed? 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 Moderate [email or web address] Information not available 10/31/2023 Mental Status None recorded. Family History Relationship Description Onset Age of this Age Resolved Age Notes LastModified by Organization Details LastModified Time Father No current problems or disability [email or web address] Not available 10/30 21:36:04 Mother No current problems or disability [email or web address] Not available 10/30 21:36:04 Medical History Condition Response Diabetes N Anxiety Disorder N Bleeding Disorder N Attention-deficit Hyperactivity Disorder N High Blood Pressure N Arthritis N Hyperlipidemia N Cancer N Stroke N Thyroid Problems N GI Problems Y Asthma Y Depression N COPD N Anemia N Seizures N Heart Disease N Fibromyalgia N Osteoporosis N Kidney Disease N Gynecological History Statement/Question Response Abnormal Pap N Date of Last Pap Smear Age at Menarche 12 Current Control Method IUD Obstetrics History GPAL:G 0 P 0 0 0 0 Past Encounters Encounter ID Performer Location Encounter Start Date Encounter Closed Date Diagnosis/Indication Diagnosis SNOMED-CT Code Diagnosis ICD10 Code Diagnosis IMO Codes Diagnosis Note [id number] Kristen Vee MD [address] [place] [facility] ([place]) [address] [place] [address] 11/01/2023 12:03:58 11/01/2023 14:04:21 Hirsutism 853819287 L68.0 Adult heal th examination 493177603 Z00.00 [id number] Violeta Boston MD [address] [facility] [address] [place] [address] 1 [place] [address] 02/11/2024 11:25:04 02/11/2024 16:08:13 Flank pain 800797267 R10.9 10935 Pain in pelvis 82804570 R10.2 02686 Patient seen in the ER 2 days ago and Erick jasso with pelvic pain. She returns for follow-up today. Her IUD is in the right location on ultrasound . There is no free fluid or adnexal masses visualized . No significan t exam findings. Gen-Probe and wet prep performed and we will notify her with results. Clean-catc h UA pending. She states that her pain has improved. Will call patient with results and follow-up recommenda tions. Reassuring that her pain has improved. She verbalized understand ing and had no further questions. Vaginal discharge 172491 006 N89.8 32334 Venereal d isease screening 950284512 Z11.3 3551769 [id number] Violeta Boston MD [address] [facility] [address] [place] [address] 1 [place] [address] 05/29/2024 13:32:09 05/29/2024 15:21:49 Gynecologic examination 61085003 Z01.195 [id number] Annual ASSOCIATE PROFESSOR OF ARCHAEOLOGY exam performed. Family and personal medical history and risk factors reviewed with patient. ACOG Pap guidelines reviewed. STD screening and prevention reviewed. Patient declined Contracept guillermina methods and options reviewed. Patient verbalized understand ing. Hirsutism 270590261 L68. 0 90609 Patient with cystic acne and hirsutism. I discussed that this could be related to possibly both stopping the combinatio n OCPs and using the progestero ne IUD. She still wants to continue the IUD for now. We discussed other options for management . She would like to try spironolac tone to see if this helps. We discussed that the current hair would need to be removed via electrolys is or laser etc. and the medication will help prevent new hair growth. Will get baseline labs today with CMP, DHEA-S and testostero ne for further evaluation . Intrauteri ne contraceptive device in situ 058508821 Z97.5 794706 Doing well with IUD. Desires to continue. [id number] Kristen Vee MD [address] [facility] [place] [address] [facility] [place] [address] 05/29/2024 12:22:59 05/29/2024 12:46:40 Acute sinusitis 60204646 J01.90 78184775 [id number] Kristen Vee MD [address] [place] [facility] [place]) [address] [facility] [place] [address] 08/29/2024 15:29:55 08/29/2024 16:04:15 Anxiety 96651539 F41.9 03159 [id number] Kristen Vee MD [address] Internal Medicine [facility] [address] [facility],[address] [place] [address] 11/08/2024 12:23:15 11/08/2024 12:44:41 Anxiety 70650370 F41.9 09196 Health Concerns Section Related Observation LastModified by Organization Detai ls LastModified Time None Recorded Concern Status LastModified by Organization Details LastModified Time None Recorded Advance Directives Directive N: Payers Insurance Date Sequence Insurance Name Policy Number Policy Carver Covered Member ID Carver Member ID Guarantor Name 11/01/2024 1 [employer] ([facility] [id number] [place] [id number] Gavino [facility] 12/31/2024 1 [employer] - [facility] B[facility] (HMO) [id number] Gavino Luis [place] [id number] Gavino [place] Notes Date Note Type Note Provider Name and Address Organization Details Recorded Time 02/11/2024 text/html ROS as noted in the HPI 18 year old female in the office today for cramping and bleeding with IUD. Patient had her IUD placed in March of 2023 and states she has been without cycles since now. She was seen in the ER on Wednesday due to living in [place] and having new onset of pain and bleeding. Per the patient all looked well at her exam in the ER and IUD was in the right spot. She reports flank/back pain, UA completed.Ultrasound today: TV exam, anteverted uterus, IUD seen in correct position in endometrial cavity, confirmed with 3D. Bilateral ovaries seen, blood flow seen to both ovaries, no free fluid or anexal masses seen. Erum Aden [facility] 02/11/2024 13:03:07 05/29/2024 text/html ROS as noted in the HPI Patient here today for routine gynecological exam. Patient is a . She is wanting to discuss growing facial hair and acne. She has seen dermatology who gave her tretinoin cream, but she states that this actually made it worse. She has only been using Myrle Krish wash and has not been using the cream slightly. She is having to shave the hairs on her chin recently. Patient is never a smoker. The patient denies pelvic pain, abnormal vaginal discharge, breast problems, urinary symptoms, vasomotor symptoms, mood changes and bowel problems. P atient does self breast exams, has adequate calcium intake and exercises occasionally/frequen tly. Contraception: Kyleena IUD- 04/08/2023LMP: amenorrhea with IUDThe patient is currently sexually active. She was seen in the office in January 2024 and has been with the same partner. GC negative. The patient has had no changes to family/surgical history since last visit. Last Mammogram: NoneLast Colonoscopy: 06/2022- persistant constipation and diarrhea- IBS diagnosis.Last Bone Density: NoneLast Pap Smear: Due todayHepatitis C: NoneHCRA: 24-64 years old.TC Score:Gardasil Vaccinated?: Completed X2 Violeta Boston MD [address] [place] [address], [address], [facility] 05/29/2024 14:20:55 OBGyn Episode No OBEpisode recorded.
--- OUTSIDE RECORDS SUMMARY | 2025-03-13 23:52 | XMS_ITS | Clinical Summary ---
Author Organization [facility] Address [address] [place] [phone] Phone Care Team Providers Care Enterprise Project Manager Name Role Phone Kristen Vee MD Primary Care Provider [phone] Allergies Active Allergy Reactions Criticality Noted Date Comments Ampicillin Rash 04/27/2023 Medications No known medications Active Problems No known active problems Social History Tobacco Use Types Packs/Day Years Used Date Smoking Tobacco: Never Smokeless Tobacco: Never Tobacco Cessation:Counseling Given: Not Answered Alcohol Use Standard Drinks/Week Comments Not Currently 0 (1 standard drink = 0.6 oz pur e alcohol) Sexually Active Control Partners Comments Not Currently Comments Unknown Sex and Gender Information Value Date Recorded Sex Assigned at Not on file Legal Sex Female 3:[address] SECURITY OFFICER Gender Identity Not on file Sexual Orientation Not on file Last Filed Vital Signs Vital Sign Reading Time Taken Comments Blood Pressure 120/72 04/27/2023 4:[address] SECURITY OFFICER Pulse 101 04/27/2023 4:[address] SECURITY OFFICER Temperature 37.8 C (100 F) 04/27/2023 4:[address] SECURITY OFFICER Respiratory Rate 15 04/27/2023 4:[address] SECURITY OFFICER Oxygen Saturation 94% 04/27/2023 4:[address] SECURITY OFFICER Inhaled Oxygen Concentration - - Weight - - Height - - Body Mass Index - - Plan of Treatment Health Maintenance Due Date Last Done Comments Hepatitis C Virus (HCV) Screening 2003 TdaP Immunization 2003 Hepatitis B Immunization (1 of 3 - 19+ 3-dose series) 2022 Pap Smear 2024 Influenza Immunization (#1) 12/18/202401/17, 02/13/2021, 02/10/2020, Additional history exists SARS-COV-2 Immunization (2024- season) 2024 09/26/2020, 09/05/2020 Respiratory Syncytial Virus (RSV) Immunization (Adult) (1 - 1-dose 75+ series) 2078 Human Papillomavirus (HPV) Immunization Completed 12/19/2015, 07/31/2015, 05/22/2015 Meningococcal Immunization (ACWY) Completed 08/31/2019 Meningococcal B Immunization Completed , 10/12/2019, 08/31/2019 Pneumococcal Immunization Combined Aged Out No longer eligible based on patient's age to complete this topic Rotavirus Immunization Aged Out No lo nger eligible based on patient's age to complete this topic Insurance [employer] Care Teams Enterprise Project Manager Relationship Specialty Start Date End Date Kristen Vee MD [address] [place] [id number] PCP - General Internal Medicine 04/27/23
[2025-03-14 00:02] LABS: Thyroid Stimulating Hormone Reflex 2.670 uIU/mL (0.465-4.68)
[2025-03-14 01:52] VITALS: BP 113/71; PULSE 82; RESP 17; O2SAT 99
[2025-03-14 02:17] LABS: Add Urine Microscopic? YES; Appearance Urine Clear (Clear); Glucose Urine UA Negative (Negative); Leukocyte Esterase Ur Trace LEU/UL (Negative); Nitrate Urine Negative (Negative); Non Pathogenic Casts 0-2; Specific Grav Ur 1.010 (1.001-1.035)
[2025-03-14 03:40] VITALS: BP 117/74; PULSE 81; RESP 18; O2SAT 97
[2025-03-14 03:41] VITALS: BP 117/74; PULSE 81; RESP 17; O2SAT 97
== END 2025-03-14 03:43 | disposition left against medical advice (07) ==
PROVIDERS: Student in an Organized Health Care Education/Training Program; Emergency Provider Registered Nurse
DX: R51.9 Headache, unspecified (principal); R55 Syncope and collapse; R42 Dizziness and giddiness; R00.0 Tachycardia, unspecified
CPT/HCPCS: 36415; 70450; 71046; 80053; 81001; 81025; 83735; 84443; 85025; 86308; 93005; 99284